=== PATIENT | male | born 1960 | race Caucasian/White ===

== ENCOUNTER 2016-09-25 14:01 | Inpatient (IN) ==
--- NOTE | 2016-09-24 22:28 | Discharge Summary ---
<Ev Jamison - Last Filed: 09/24/16 22:26> Date of Encounter: 09/24/16 - Discharge Diagnosis (1) Arthritis of left hip Priority: Primary Status: Acute (2) HTN (hypertension) Priority: Secondary Status: Chronic Qualifiers: Hypertension type: essential hypertension Qualified Code(s): I10 - Essential (primary) hypertension (3) Tobacco use Priority: Secondary Status: Chronic (4) ESRD (end stage renal disease) on dialysis Priority: Secondary Status: Chronic (5) History of kidney transplant Priority: Secondary Status: Chronic (6) COPD (chronic obstructive pulmonary disease) Priority: Secondary Status: Chronic Qualifiers: COPD type: unspecified COPD Qualified Code(s): J44.9 - Chronic obstructive pulmonary disease, unspecified - Discharge Medications Home Medications: Aclidinium [place] [Tudorza Pressair] 400 mcg IH BID 06/15/15 [History] Alprazolam [Xanax 0.5 MG Tablet] 0.5 mg PO TID 06/15/15 [History] Carvedilol [Coreg] 25 mg PO BID 06/15/15 [History] Aspirin Enteric Coated [Aspirin EC] 325 mg PO DAILY #21 tablet. 09/24/16 [Rx] OxyCODONE/APAP 5/325 [Percocet 5/325 MG] 1 - 2 each PO Q6HR PRN #40 tab [Rx] Albuterol Sulfate [Ventolin Hfa] 2 puff IH Q4H PRN 09/25/16 [History] Aspirin [Lo-Dose Aspirin EC] 81 mg PO DAILY 09/25/16 [History] Dicyclomine [Bentyl] 10 mg PO QID PRN 09/25/16 [History] Furosemide [Lasix] 40 mg PO BID 09/25/16 [History] Gabapentin [Neurontin] 300 mg PO HS 09/25/16 [History] NIFEdipine [Nifedipine ER] 30 mg PO DAILY 09/25/16 [History] OxyCODONE/APAP 5/325 [Percocet 5/325 MG] 1 each PO Q8HR PRN 09/25/16 [History] Pantoprazole Sodium [Protonix] 40 mg PO DAILY 09/25/16 [History] PredniSONE 10 mg PO DAILY 09/25/16 [History] Allergies/Adverse Reactions: Allergies No Known Allergies Allergy (Verified 09/25/16 14:29) Primary care physician: Kingsley Colbert MD - Patient Status Disposition: Home, Self-Care Condition: Good - Discharge Instructions Follow Up With: Kingsley Colbert MD [Primary Care Provider] - - Hospital Course Hospital course: Mr. Sherwood is a 56 year old male - Time Spent with Patient Total time spent providing and/or coordinating discharge services: <[email or web address] - Last Filed: 09/26/16 06:31> Date of Encounter: 09/26/16 Time of Encounter: 06:31 - Discharge Diagnosis (1) Arthritis of left hip Priority: Primary Status: Acute (2) HTN (hypertension) Priority: Secondary Status: Chronic Qualifiers: Hypertension type: essential hypertension Qualified Code(s): I10 - Essential (primary) hypertension (3) Tobacco use Priority: Secondary Status: Chronic (4) ESRD (end stage renal disease) on dialysis Priority: Secondary Status: Chronic (5) History of kidney transplant Priority: Secondary Status: Chronic (6) COPD (chronic obstructive pulmonary disease) Priority: Secondary Status: Chronic Qualifiers: COPD type: unspecified COPD Qualified Code(s): J44.9 - Chronic obstructive pulmonary disease, unspecified Primary care physician: Kingsley Colbert MD - Patient Status Functional capacity at discharge: uses cane/walker Overall status at discharge: patient is progressing back to baseline - Hospital Course Hospital course: Mr. Sherwood is a 56 year old male The patient had an uneventful postoperative course. They received antibiotics and physical therapy and were discharged in stable condition. There will follow -up in the office in 2 weeks. Aspirin DVT prophylaxis will get dialysis tomorrow - Time Spent with Patient Total time spent providing and/or coordinating discharge services:
[2016-09-25] MEDS ORDERED: Albuterol 2.5 MG/3 ML NEBULIZER IH ONE (14:26)
[2016-09-25] MEDS ORDERED: Vancomycin 1,000 MG in D5% in Water 250 ML IVPB ONE (14:26)
[2016-09-25] MEDS ORDERED: Lidocaine -MPF 1% 2 ML VIAL ID ONE (14:26)
[2016-09-25] MEDS ORDERED: 0.9 % Sodium Chloride 500 ML IVC SCH (14:30)
[2016-09-25] MEDS ORDERED: Acetaminophen IV 1,000 MG/100 ML INFUS..BTL IVPB ONE (15:26)
[2016-09-25] MEDS ORDERED: Famotidine 20 MG/2 ML VIAL IVP ONE (15:26)
--- NOTE | 2016-09-25 15:37 | Anesthesia Evaluation PreOp ---
Date of Encounter: 09/25/16 Time of Encounter: 15:30 - Past History Planned Operation: L-total HIP Cardiac History: HTN (maintained on Lasix, Coreg, NOrvasc), Other (Nuclear Stress 02/2016 - LVEF 55%. NO evidence of ischemia or prior myocardial injury) Pulmonary History: Smoker (<1ppd x 35yrs), COPD (maintained on Aclidinium [place], Ventolin), Other (Lung Ca denies) DEFENSE ATTORNEY History: CVA (2012 - Minimal Weakness on L-body (arm, leg, face)), Other ( Chronic Pain/Neuropathy maintained on GAbapentin) Other Medical History: Renal (ESRD S/P R-kidney transplant 06/2014, subsequent failed R&L kidney failures and return to [facility]. Currently wait listed for REPEAT KIDNEY TRANSPLANT. [According to Dr. Hebert, Pts Tx surgeons "OK'd" pt for this Orthopedic surgery), Diabetes Type II (Borderline Diabetic), GERD ( maintained on Protonixs), Other (Multiple hospitalizations 2014-present re: COPD exacerbations, C.Diff, Colitis and Hypertensive urgency) Anesthesia History: No Prior Anesthetic Complications, Past Anesthesia ( Hemorrhoidectomy, Kidney Bx, Dialysis ports, Appy, L-AV Fistula, Blood clot evacuatkon L-forearm, R-Kidney Tx 06/16/2014, Kidney Bx04/2016, Colonoscopy 2015) Alcohol Use: none Drug use: none Medications and Allergies Aclidinium [place] [Tudorza Pressair] 400 mcg IH BID 06/15/15 [History] Alprazolam [Xanax 0.5 MG Tablet] 0.5 mg PO TID 06/15/15 [History] Carvedilol [Coreg] 25 mg PO BID 06/15/15 [History] Aspirin Enteric Coated [Aspirin EC] 325 mg PO DAILY #21 tablet. 09/24/16 [Rx] OxyCODONE/APAP 5/325 [Percocet 5/325 MG] 1 - 2 each PO Q6HR PRN #40 tab [Rx] Albuterol Sulfate [Ventolin Hfa] 2 puff IH Q4H PRN 09/25/16 [History] Aspirin [Lo-Dose Aspirin EC] 81 mg PO DAILY 09/25/16 [History] Dicyclomine [Bentyl] 10 mg PO QID PRN 09/25/16 [History] Furosemide [Lasix] 40 mg PO BID 09/25/16 [History] Gabapentin [Neurontin] 300 mg PO HS 09/25/16 [History] NIFEdipine [Nifedipine ER] 30 mg PO DAILY 09/25/16 [History] OxyCODONE/APAP 5/325 [Percocet 5/325 MG] 1 each PO Q8HR PRN 09/25/16 [History] Pantoprazole Sodium [Protonix] 40 mg PO DAILY 09/25/16 [History] PredniSONE 10 mg PO DAILY 09/25/16 [History] Allergies No Known Allergies Allergy (Verified 09/25/16 14:29) - Meds/Allergy Pre-op Review Medications Reviewed: Yes Allergies Reviewed: Yes Beta Blockers on Current Med List: Yes (Carvedilol) If Beta Blockers taken, Date/Time (Last Dose taken): 09/24/16 @ 2100 Anesthesia Results - Labs Laboratory Tests 12/05/15 09/12/16 09/12/16 14:21 14:22 14:22 WBC 7.6 Hgb 14.8 Hct 45.9 Plt Count 201 PT 11.7 INR 1.1 APTT 33.4 Sodium Potassium Chloride Carbon Dioxide BUN Creatinine Est GFR (Non-Af Amer) Glucose 116 H 09/12/16 14:22 WBC Hgb Hct Plt Count PT INR APTT Sodium 137 Potassium 4.9 H Chloride 102 Carbon Dioxide 20 BUN 24 Creatinine 3.90 H Est GFR (Non-Af Amer) 16 L Glucose (Last Dialysis 09/24/16 - current labs from today not available) - Imaging EKG: image reviewed (11/14/2015 - Sinus Tach, Non-specific T-wave abnormality,) Anesthesia Exam O2 Sat Height 1.7 m Height 1.7 m Weight 66.678 kg Weight 66.678 kg O2 Sat by Pulse Oximetry 94 O2 Sat by Pulse Oximetry 94 Vital Signs Temp Pulse Resp BP Pulse Ox 99.6 F 90 18 101/69 94 09/25/16 14:53 09/25/16 14:53 09/25/16 14:53 09/25/16 14:53 09/25/16 14:53 Height: 5'7" Weight: 147# BMI = 23 NPO (# of Hours): MNOC - HEENT Pupil (Motor): Pupils equal, EOMI Mallampati: II Teeth: Edentulous Oral Opening: Greater than 3 - DEFENSE ATTORNEY LOC: Oriented DEFENSE ATTORNEY Motor: Normal RUE, Normal LUE (LIMB PRECAUTION), Normal RLE, Normal LLE , Normal Face DEFENSE ATTORNEY Sensory: Normal: RUE, LUE (LIMB PRECAUTION), RLE, LLE, Face - Cardiac Rhythm: Regular Murmur: None - Pulmonary Breath Sounds: bilateral Clear Respiratory Effort: Symmetrical Anesthesia Assess/Plan ASA Score: 4 (ESRD, COPD, Smoker,) Modified Kerry Scale for Level of Consciousness: Cooperative, oriented, and tranquil Anesthetic Plan: General Monitoring Plan: Standard Monitors Recovery Plan: PACU Anes Supervising Prov Stmt: Pt seen/evaluated, R&B Discussed, questions answered and consent obtained. Miki Escalante MD
--- NOTE | 2016-09-25 15:44 | History & Physical Report ---
Date of Encounter: 09/25/16 Time of Encounter: 15:43 24 Hour HP Update - Instructions Instructions: If the History and Physical is less than 30 days old and was completed prior to A.M. admission and or procedure and has NOT been updated on calendar day of procedure please complete this update prior to performing procedure. - Update Patient reports changes in Medical Condition: No Changes in examination, assessment, or condition: No Changes in Medication: No Preop tests/diagnostics Reviewed: Yes Surgery Remains Indicated: Yes Consent for Planned Operative Procedure(s) Verified: Yes - Pre-Operative Checklist Preoperative Checklist Indicated: No Prophylactic Antibiotic Ordered: Yes Is VTE Prophylaxis Indicated?: Yes
[2016-09-25] MEDS ORDERED: Ondansetron 4 MG/2 ML VIAL ONE (17:12)
[2016-09-25] MEDS ORDERED: *HR* FentaNYL (PF) 100 MCG/2 ML VIAL ONE (17:12)
[2016-09-25] MEDS ORDERED: *HR* Propofol 200 MG/20 ML VIAL IVP ONE (17:12)
[2016-09-25] MEDS ORDERED: *HR* Rocuronium Bromide 50 MG/5 ML VIAL ONE (17:12)
[2016-09-25] MEDS ORDERED: Lidocaine -MPF 2% 2 ML VIAL ONE (17:12)
[2016-09-25] MEDS ORDERED: Vancomycin 1,000 MG VIAL ONE (17:27)
[2016-09-25] MEDS ORDERED: *HR* Enoxaparin 30 MG/0.3 ML SYRINGE SQ SCH (18:00)
[2016-09-25] MEDS ORDERED: *HR* HYDROmorphone 2 MG/ML SYRINGE ONE (18:11)
[2016-09-25] MEDS ORDERED: Neostigmine Methylsulfate 3 MG/3 ML SYRINGE ONE (18:11)
--- NOTE | 2016-09-25 18:15 | Orthopedic Operative Note ---
Date of procedure: 09/25/16 Pre-op diagnosis: Left hip arthritis Post-op diagnosis: same Procedure: Procedure: Total Hip Replacment Estimated blood loss: 200 cc Hardware: Biomet DM Cup: 54 G7 fin cup Femoral size 16 echo full profile lateralized stem Head: +9 head with Tamera Procedural Notes: Grade 4 arthritic changes femoral head acetabular socket. Operative procedure: The patient was brought to the operating room and placed on the operating room table. After general anesthesia was administered the patient was placed in the lateral decubitus position with the operative leg up. All pressure points were padded appropriately and the head was stabilized in the neutral position. The operative extremity was prepped and draped in the sterile surgical fashion patient received IV antibiotic prior to skin incision. A standard posterior approach is made to the operative hip, the incision was made through the skin and subcutaneous tissue hemostasis was obtained with Bovie cautery. Using careful sharp dissection the fascia was identified and incised exposing the external rotators. The external rotators were released off the greater trochanter and tagged with #2 FiberWire suture. The capsule was T'd open and the hip was brought into internal rotation. Patient noted to have grade 4 arthritic changes femoral head. The femoral neck cut was made at the appropriate level. An anterior capsulotomy was performed for the anterior retractor. Soft tissues removed from the acetabulum. Patient noted to have grade 4 arthritic changes acetabulum. Acetabulum was first reamed medially, and then reamed in 15 degrees of anteversion and 45 degrees off the horizontal. It was reamed up to the appropriate size 54 The appropriate-sized 54 acetabular cup was impacted in place in 15 degrees of anteversion and 45 degrees off the horizontal. This had good fit and fixation. The hip was brought back in to internal rotation and prepared with the box spring maker followed by the canal finder followed by broaching process in 20 degrees anteversion. It was broached up to the appropriate size 16. The femoral implant was impacted in place in 20 degrees of anteversion. Trial reduction found the hip to be stable with +9 head and Tamera. The trials were removed and the real implants were impacted in place. The hip was reduced, patient had apparent equal leg lengths. The hip had excellent stability with forward flexion to 90 degrees adduction of 30 degrees and internal rotation of 60 degrees. The hip had no shuck. The hips after 2 minutes with a Betadine saline solution. It was irrigated out with 2 L of pulse irrigation. The external rotators were reattached to drill holes in the greater trochanter. Fascia was closed with a running #2 PDS suture. The deep tissue was irrigated and closed deep with #1 PDS suture superficially with 0 PDS suture and skin was closed with Dermabond and skin lane. The patient was placed in a sterile dressing and abduction pillow. The patient was extubated and transferred to the recovery room in stable condition. Anesthesia: MERISSA Surgeon: [employer] Computer Consultant: Ev Jamison Condition: stable Disposition: PACU
[2016-09-25] MEDS ORDERED: *HR* Phenylephrine 10 MG/ML VIAL ONE (18:25)
[2016-09-25] MEDS ORDERED: *HR* HYDROmorphone (PF) 1 MG/ML SYRINGE IVP PRN ×2 (18:34→20:09)
[2016-09-25 19:47] LABS: Hematocrit 33.7 % (37.5-50.1); Hemoglobin 10.8 g/dL (12.9-16.9)
--- NOTE | 2016-09-25 19:49 | Anesthesia Evaluation Post Op ---
Date of Encounter: 09/25/16 Time of Encounter: 19:48 - Vital Signs Vital Signs: Last Vital Signs Temp 98.9 F 09/25/16 19:42 Pulse 67 09/25/16 19:42 Resp 16 09/25/16 19:42 BP 104/69 09/25/16 19:42 Pulse Ox 97 09/25/16 19:42 - Lungs Lungs: Clear Ascult./Percussion - Airway Airway: Non-obstructed - Cardiovascular Regular Rate - Mental Status Mental Status: Alert & Oriented, Answers Appropriately - Pain Pain Scale: 2 - Nausea Vomiting Nausea Vomiting: Not Present - Hydration Hydration: Ice chips - Discharge PostOp Status: Transfer Patient to floor
[2016-09-25] MEDS ORDERED: Naloxone 0.4 MG/ML INJ IVP PRN (20:09)
[2016-09-25] MEDS ORDERED: *HR* OxyCODONE Immed Rel 5 MG TABLET PO PRN (20:09)
[2016-09-25] MEDS ORDERED: MOM Conc 10 ML UD.LIQ PO PRN (20:09)
[2016-09-25] MEDS ORDERED: Sennosides 8.6 MG TABLET PO PRN (20:09)
[2016-09-25] MEDS ORDERED: ceFAZolin 2,000 MG in D5% in Water 100 ML IVPB SCH (20:09)
[2016-09-25] MEDS ORDERED: Temazepam 15 MG CAPSULE PO PRN (20:09)
[2016-09-25] MEDS ORDERED: Ondansetron 4 MG/2 ML VIAL IVP PRN (20:09)
[2016-09-25] MEDS: Furosemide 40 MG TABLET PO SCH (21:01)
[2016-09-25] MEDS: Gabapentin 300 MG CAPSULE PO SCH (21:01)
[2016-09-25] MEDS: *HR* OxyCODONE Immed Rel 5 MG TABLET PO PRN (21:02)
[2016-09-25] MEDS: ceFAZolin 2,000 MG in D5% in Water 100 ML IVPB SCH (21:02)
[2016-09-25] MEDS: (Aclidinium Bromide [Tudorza Pressair] 400 MCG) IH SCH (21:03)
[2016-09-25] MEDS: ALPRAZolam 0.5 MG TABLET PO SCH (21:03)
[2016-09-26] MEDS: *HR* OxyCODONE Immed Rel 5 MG TABLET PO PRN ×4 (01:10→17:36)
[2016-09-26] MEDS: ceFAZolin 2,000 MG in D5% in Water 100 ML IVPB SCH (05:01)
[2016-09-26 05:33] LABS: Hematocrit 31.8 % (37.5-50.1); Hemoglobin 10.2 g/dL (12.9-16.9)
[2016-09-26 05:54] LABS: Potassium 3.2 mEq/L (3.5-4.5)
[2016-09-26] MEDS ORDERED: *HR* Enoxaparin 30 MG/0.3 ML SYRINGE SQ SCH (06:00)
--- NOTE | 2016-09-26 06:32 | Orthopedics Progress Note ---
Date of Encounter: 09/26/16 Time of Encounter: 06:31 - Assessment and Plan (1) Arthritis of left hip Current Visit: Yes Status: Acute (2) HTN (hypertension) Current Visit: Yes Status: Chronic Qualifiers: Hypertension type: essential hypertension Qualified Code(s): I10 - Essential (primary) hypertension (3) Tobacco use Current Visit: Yes Status: Chronic (4) ESRD (end stage renal disease) on dialysis Current Visit: Yes Status: Chronic (5) History of kidney transplant Current Visit: Yes Status: Chronic (6) COPD (chronic obstructive pulmonary disease) Current Visit: Yes Status: Chronic Qualifiers: COPD type: unspecified COPD Qualified Code(s): J44.9 - Chronic obstructive pulmonary disease, unspecified Subjective Interval history: Patient was seen this morning doing well without complaints. Afebrile vital signs stable. Operative extremity: Neurovascularly intact Dressing clean dry and intact Calves nontender Assessment and plan: Continue with postoperative care Hematocrit 31 discharged today Objective Vital signs: Vital Signs Temp Pulse Resp BP Pulse Ox 09/26/16 04:36 98.1 F 88 18 105/65 97 09/25/16 23:59 98.0 F 55 15 101/75 100 09/25/16 23:57 98.7 F 82 18 99/69 99 09/25/16 22:14 97.9 F 52 14 92/69 99 09/25/16 21:05 97.8 F 78 18 104/70 98 09/25/16 20:35 98.2 F 68 16 102/69 96 09/25/16 20:00 98.2 F 69 17 109/74 100 09/25/16 19:42 98.9 F 67 16 104/69 97 09/25/16 19:32 65 16 107/70 95 09/25/16 19:22 66 16 106/72 96 09/25/16 19:12 99.0 F 78 16 97/69 96 09/25/16 19:02 66 16 105/72 95 09/25/16 18:52 74 16 96/73 97 09/25/16 18:42 98.6 F 86 16 98/71 94 09/25/16 14:53 99.6 F 90 18 101/69 94 Intake and Output 09/25/16 09/25/16 09/26/16 15:59 23:59 07:59 Intake Total 100 / 100 1200 / 1200 Output Total 200 / 200 Balance -100 / -100 1200 / 1200 Intake: IV Fluids 100 / 100 100 / 100 Ancef 2,000 MG In 100 / 100 100 / 100 Dextrose 5% 100 ML @ 200 mls/hr IVPB Q8H CARLOS Rx#: [id number] Oral 1100 / 1100 Output: Estimated Blood Loss 200 / 200 Other: # Voids 1 Weight 66.678 kg - Labs CBC & BMP: 09/26/16 04:58 09/26/16 04:58 Labs: Abnormal lab results Hgb 10.2 g/dL (12.9-16.9) L 09/26/16 04:58 Hct 31.8 % (37.5-50.1) L 09/26/16 04:58 Sodium 134 mEq/L (136-145) L 09/26/16 04:58 Potassium 3.2 mEq/L (3.5-4.5) L 09/26/16 04:58 Chloride 97 mEq/L (98-109) L 09/26/16 04:58 Creatinine 3.44 mg/dL (0.72-1.25) H 09/26/16 04:58 Est GFR ( Amer) 23 (> 60) L 09/26/16 04:58 Est GFR (Non-Af Amer) 19 (> 60) L 09/26/16 04:58 BUN/Creatinine Ratio 4 (6-26) L 09/26/16 04:58 Calculated Osmolality 278 (280-300) L 09/26/16 04:58 Calcium 8.0 mg/dL (8.6-10.8) L 09/26/16 04:58 - VTE Documentation of Mechanical Device: Venous foot pump, device Consult Discharge Plan - Plan Referrals: Kingsley Colbert MD [Primary Care Provider] -
[2016-09-26] MEDS: ALPRAZolam 0.5 MG TABLET PO SCH ×3 (08:43→20:51)
[2016-09-26] MEDS: NIFEdipine XL (24 HR) 30 MG TAB.ER.24 PO SCH (08:43)
[2016-09-26] MEDS: Aspirin Enteric Coated 81 MG Tablet PO SCH (08:43)
[2016-09-26] MEDS: Furosemide 40 MG TABLET PO SCH ×2 (08:43→20:52)
[2016-09-26] MEDS: predniSONE 10 MG TABLET PO SCH (08:44)
[2016-09-26] MEDS: (Aclidinium Bromide [Tudorza Pressair] 400 MCG) IH SCH ×2 (08:44→20:51)
--- NOTE | 2016-09-26 13:02 | Nephrology Consult Note ---
Date of Encounter: 09/27/16 Time of Encounter: 12:59 Assessment and Plan (1) ESRD (end stage renal disease) on dialysis Current Visit: Yes Status: Chronic Completed HD yesterday. The recorded hypokalemia and mild hyponatremia likely resulted from the dialysis session that he completed yesterday prior to admission. Will continue maintenance HD every M/W/F while here inpatient, so his next HD is scheduled for tomorrow (Sunday). Thank you for consulting the [facility]. History of Present Illness - Reason for Consult Consult date: 09/26/16 end stage renal disease Requesting physician: Ev Jamison - Chief Complaint Hx of ESRD - History of Present Illness Gianluca Sherwood is a very pleasant 56 y/o WM gentleman with a pmh of ESRD on HD s/p prior failed renal transplant in the [facility] who presented for orthopedic surgery. He last dialyzed on Sunday for a full treatment. His primary income tax expert is Dr. Kilgore; and he dialyzes at the [facility] dialysis unit in [place], [place]. He typically dialyzes for 210 minutes via the left forearm AV graft. He denied any recent issues with his outpatient dialysis regimen. He says that he has had long-standing hip and knee pains. Hx of hypertension. He did not affirm chest pain, shortness of breath, nausea, vomiting, or diarrhea. He does have some mild hip pain, and reported feeling very fatigued. Past Med Surg Social Fam HX - Past Medical History Medical history: COPD, CVA, dialysis, hypertension, renal disease, other Psychiatric history: no psych history - Past Surgical History Surgical History: appendectomy, transplant - Social History Smoking Status: Current every day smoker Packs per day: 0.25 Smokeless Tobacco Status: No Alcohol use: none Drug use: none - Family History Mother Living Status: Age at : 64 Cause of : DM Hx Family Cardiac Disorders: Yes Hx Family Respiratory Disorders: Yes Hx Family Cancer: No Hx Family GI Disorders: No Hx Family Genitourinary Disorders: No Hx Family Endocrine Disorder: Yes Hx Family Musculoskeletal Disorders: No Hx Family Neuromuscular Disorders: No Hx Family Neurologic Disorders: No Hx Family HEENT Disorders: No Hx Family Autoimmune Disorders: No Hx Family Reproductive Disorders: No Hx Family Psychosocial Disorders: No Hx Family Medical Disorders: No Medications and Allergies Aclidinium [place] [Tudorza Pressair] 400 mcg IH BID 06/15/15 [History] Alprazolam [Xanax 0.5 MG Tablet] 0.5 mg PO TID 06/15/15 [History] Carvedilol [Coreg] 25 mg PO BID 06/15/15 [History] Aspirin Enteric Coated [Aspirin EC] 325 mg PO DAILY #21 tablet. 09/24/16 [Rx] OxyCODONE/APAP 5/325 [Percocet 5/325 MG] 1 - 2 each PO Q6HR PRN #40 tab [Rx] Albuterol Sulfate [Ventolin Hfa] 2 puff IH Q4H PRN 09/25/16 [History] Aspirin [Lo-Dose Aspirin EC] 81 mg PO DAILY 09/25/16 [History] Dicyclomine [Bentyl] 10 mg PO QID PRN 09/25/16 [History] Furosemide [Lasix] 40 mg PO BID 09/25/16 [History] Gabapentin [Neurontin] 300 mg PO HS 09/25/16 [History] NIFEdipine [Nifedipine ER] 30 mg PO DAILY 09/25/16 [History] OxyCODONE/APAP 5/325 [Percocet 5/325 MG] 1 each PO Q8HR PRN 09/25/16 [History] Pantoprazole Sodium [Protonix] 40 mg PO DAILY 09/25/16 [History] PredniSONE 10 mg PO DAILY 09/25/16 [History] Allergies No Known Allergies Allergy (Verified 09/25/16 14:29) Review of Systems All Systems: reviewed and no additional remarkable complaints except as stated Exam - Vital Signs Vital signs: Initial Vital Signs Temp Pulse Resp BP Pulse Ox 99.6 F 90 18 101/69 94 09/25/16 14:53 09/25/16 14:53 09/25/16 14:53 09/25/16 14:53 09/25/16 14:53 Vital Signs - Last 8 Hours Temp Pulse Resp BP Pulse Ox 09/26/16 11:17 102/60 09/26/16 10:39 97.9 F 101 18 95/70 93 09/26/16 10:21 89 18 109/74 95 09/26/16 08:32 95 09/26/16 06:37 99.8 F H 89 18 109/74 95 Intake and Output 09/25/16 09/26/16 09/26/16 23:59 07:59 15:59 Intake Total 100 / 100 1200 / 1200 0 / 0 Output Total 200 / 200 0 / 0 Balance -100 / -100 1200 / 1200 0 / 0 Intake: IV Fluids 100 / 100 100 / 100 Ancef 2,000 MG In 100 / 100 100 / 100 Dextrose 5% 100 ML @ 200 mls/hr IVPB Q8H CARLOS Rx#: [id number] Oral 1100 / 1100 0 / 0 Output: Urine 0 / 0 Estimated Blood Loss 200 / 200 Other: # Voids 1 - General Appearance General appearance: well-developed, chronically ill, fatigue, frail EENT: ATNC, PERRL, mucous membranes moist Neck: supple Respiratory: clear Cardiology: edema, regular rate, regular rhythm, normal S1, normal S2 - Dialysis Access Dialysis Vascular Access: Arteriovenous Graft (Left) thrill: Yes bruit: Yes Gastrointestinal: normoactive bowel sounds, no tenderness, no guarding Integumentary: no rash, warm and dry Neurologic: no focal deficit, no asterixis, alert and oriented x3 Musculoskeletal: no deformities, no erythema Psychiatric: depressed, cooperative Results - Lab Results 09/27/16 05:45 09/27/16 05:45 Most recent lab results Calcium 8.0 mg/dL (8.6-10.8) L 09/26/16 04:58 I reviewed the above auto generated data miller and reviewed the labs, meds, vitals, imaging, progress notes, and outside medical records via the [facility] EMR system. Consult Discharge Plan - Plan Instructions: Chronic Obstructive Pulmonary Disease (DC), Chronic Hypertension (DC) Referrals: Frank Coy MD [Partnered Physician] - 10/25/16 4:40 pm Ev Jamison PAC [Physician Band Leader] - 10/05/16 9:00 am Kingsley Colbert MD [Primary Care Provider] - 10/05/16 2:15 pm
--- NOTE | 2016-09-26 13:43 | Anesthesia Evaluation PreOp ---
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 09/24/16 [Rx] OxyCODONE/APAP 5/325 [Percocet 5/325 MG] 1 - 2 each PO Q6HR PRN #40 tab [Rx] Albuterol Sulfate [Ventolin Hfa] 2 puff IH Q4H PRN 09/25/16 [History] Aspirin [Lo-Dose Aspirin EC] 81 mg PO DAILY 09/25/16 [History] Dicyclomine [Bentyl] 10 mg PO QID PRN 09/25/16 [History] Furosemide [Lasix] 40 mg PO BID 09/25/16 [History] Gabapentin [Neurontin] 300 mg PO HS 09/25/16 [History] NIFEdipine [Nifedipine ER] 30 mg PO DAILY 09/25/16 [History] OxyCODONE/APAP 5/325 [Percocet 5/325 MG] 1 each PO Q8HR PRN 09/25/16 [History] Pantoprazole Sodium [Protonix] 40 mg PO DAILY 09/25/16 [History] PredniSONE 10 mg PO DAILY 09/25/16 [History] Allergies No Known Allergies Allergy (Verified 09/25/16 14:29) - Meds/Allergy Pre-op Review Medications Reviewed: Yes Allergies Reviewed: Yes Beta Blockers on Current Med List: Yes If Beta Blockers taken, Date/Time (Last Dose taken): 09/27/2015 08:43 Anesthesia Results - Labs 09/26/16 04:58 09/26/16 04:58 Stress 02/17 EF-55%, No ischemia - Imaging EKG: image reviewed (ST, Non-specifi T-wave abnormality) Anesthesia Exam O2 Sat Height 1.7 m Height 1.7 m Weight 66.678 kg Weight 66.678 kg O2 Sat by Pulse Oximetry 93 O2 Sat by Pulse Oximetry 95 O2 Sat by Pulse Oximetry 95 O2 Sat by Pulse Oximetry 95 O2 Sat by Pulse Oximetry 97 O2 Sat by Pulse Oximetry 100 O2 Sat by Pulse Oximetry 99 O2 Sat by Pulse Oximetry 99 O2 Sat by Pulse Oximetry 98 O2 Sat by Pulse Oximetry 96 O2 Sat by Pulse Oximetry 100 O2 Sat by Pulse Oximetry 97 O2 Sat by Pulse Oximetry 95 O2 Sat by Pulse Oximetry 96 O2 Sat by Pulse Oximetry 96 O2 Sat by Pulse Oximetry 95 O2 Sat by Pulse Oximetry 97 O2 Sat by Pulse Oximetry 94 O2 Sat by Pulse Oximetry 94 O2 Sat by Pulse Oximetry 94 Vital Signs Temp Pulse Resp BP Pulse Ox 99.6 F 90 18 101/69 94 09/25/16 14:53 09/25/16 14:53 09/25/16 14:53 09/25/16 14:53 09/25/16 14:53 Vital Signs/O2 Sat, Most Current Temp Pulse Resp BP Pulse Ox 97.9 F 101 18 102/60 93 09/26/16 10:39 09/26/16 10:39 09/26/16 10:39 09/26/16 11:17 09/26/16 10:39 Height: 5'7'' Weight: 147# NPO (# of Hours): > 8 hrs Pain Scale: 0 Pain Scale Used: Numeric (1 - 10) - HEENT Pupil (Motor): Pupils equal, EOMI Mallampati: II Teeth: Edentulous Oral Opening: Greater than 3 - NATIONAL DEDICATED TRUCK DRIVER LOC: Oriented NATIONAL DEDICATED TRUCK DRIVER Motor: Normal RUE, Normal LUE, Normal RLE, Normal LLE, Normal Face NATIONAL DEDICATED TRUCK DRIVER Sensory: Normal: RUE, LUE, RLE, LLE, Face - Cardiac Rhythm: Regular Murmur: None JVD: No Carotid Bruit: No - Pulmonary Breath Sounds: bilateral Clear Respiratory Effort: Symmetrical Anesthesia Assess/Plan ASA Score: 4 Modified [place] Scale for Level of Consciousness: Cooperative, oriented, and tranquil Anesthetic Plan: MAC Autologous Blood: Yes Monitoring Plan: Standard Monitors Recovery Plan: Other
[2016-09-26] MEDS: Gabapentin 300 MG CAPSULE PO SCH (20:50)
[2016-09-27] MEDS: *HR* OxyCODONE Immed Rel 5 MG TABLET PO PRN ×2 (05:38→14:58)
[2016-09-27] MEDS: *HR* Heparin 5,000 UNIT/ML VIAL SQ SCH ×2 (05:38→17:04)
[2016-09-27 06:07] LABS: Hematocrit 27.5 % (37.5-50.1); Hemoglobin 8.9 g/dL (12.9-16.9)
--- NOTE | 2016-09-27 06:50 | Orthopedics Progress Note ---
Date of Encounter: 09/27/16 Time of Encounter: 06:50 - Assessment and Plan (1) Arthritis of left hip Current Visit: Yes Status: Acute (2) HTN (hypertension) Current Visit: Yes Status: Chronic Qualifiers: Hypertension type: essential hypertension Qualified Code(s): I10 - Essential (primary) hypertension (3) Tobacco use Current Visit: Yes Status: Chronic (4) ESRD (end stage renal disease) on dialysis Current Visit: Yes Status: Chronic (5) History of kidney transplant Current Visit: Yes Status: Chronic (6) COPD (chronic obstructive pulmonary disease) Current Visit: Yes Status: Chronic Qualifiers: COPD type: unspecified COPD Qualified Code(s): J44.9 - Chronic obstructive pulmonary disease, unspecified Subjective Interval history: Patient was seen this morning doing well without complaints. Afebrile vital signs stable. Operative extremity: Neurovascularly intact Dressing clean dry and intact Calves nontender Assessment and plan: Continue with postoperative care Hemoglobin 8.9 discharged today after dialysis Objective Vital signs: Vital Signs Temp Pulse Resp BP Pulse Ox 09/27/16 05:45 104 18 99/62 09/27/16 02:01 99.3 F 102 17 99/69 92 09/26/16 21:11 98.8 F 110 16 111/72 93 09/26/16 17:20 100.8 F H 09/26/16 14:00 99.8 F H 105 20 95/67 93 09/26/16 11:17 102/60 09/26/16 10:39 97.9 F 101 18 95/70 93 09/26/16 10:21 89 18 109/74 95 09/26/16 08:32 95 Intake and Output 09/26/16 09/26/16 09/27/16 15:59 23:59 07:59 Intake Total 0 / 0 240 / 240 Output Total 200 / 200 50 / 50 Balance -200 / -200 240 / 240 -50 / -50 Intake: Oral 0 / 0 240 / 240 Output: Urine 200 / 200 50 / 50 Other: Meal Dinner Percent of Meal Consumed 50% # Voids 1 - Labs CBC & BMP: 09/27/16 05:45 09/26/16 04:58 Labs: Abnormal lab results Hgb 8.9 g/dL (12.9-16.9) L 09/27/16 05:45 Hct 27.5 % (37.5-50.1) L 09/27/16 05:45 Sodium 134 mEq/L (136-145) L 09/26/16 04:58 Potassium 3.2 mEq/L (3.5-4.5) L 09/26/16 04:58 Chloride 97 mEq/L (98-109) L 09/26/16 04:58 Creatinine 3.44 mg/dL (0.72-1.25) H 09/26/16 04:58 Est GFR ( Amer) 23 (> 60) L 09/26/16 04:58 Est GFR (Non-Af Amer) 19 (> 60) L 09/26/16 04:58 BUN/Creatinine Ratio 4 (6-26) L 09/26/16 04:58 Calculated Osmolality 278 (280-300) L 09/26/16 04:58 Calcium 8.0 mg/dL (8.6-10.8) L 09/26/16 04:58 - VTE Documentation of Mechanical Device: Venous foot pump, device Consult Discharge Plan - Plan Instructions: Chronic Obstructive Pulmonary Disease (DC), Chronic Hypertension (DC) Referrals: Frank Coy MD [Partnered Physician] - 10/25/16 4:40 pm Ev Jamison, PAC [Physician Signal Fitter] - 10/05/16 9:00 am Kingsley Colbert MD [Primary Care Provider] - 10/05/16 2:15 pm
[2016-09-27] MEDS ORDERED: 0.9 % Sodium Chloride 250 ML IVC PRN (06:51)
[2016-09-27 06:54] LABS: Calcium 8.5 mg/dL (8.6-10.8); Magnesium 1.2 mg/dL (1.6-2.6); Phosphorous 4.5 mg/dL (2.3-4.7); Potassium 3.6 mEq/L (3.5-4.5)
[2016-09-27] MEDS: ALPRAZolam 0.5 MG TABLET PO SCH ×3 (08:40→21:38)
[2016-09-27] MEDS ORDERED: 0.9 % Sodium Chloride 2,000 ML ONE (12:57)
[2016-09-27] MEDS: NIFEdipine XL (24 HR) 30 MG TAB.ER.24 PO SCH (14:58)
[2016-09-27] MEDS: predniSONE 10 MG TABLET PO SCH (14:58)
[2016-09-27] MEDS: Furosemide 40 MG TABLET PO SCH ×2 (14:59→21:38)
[2016-09-27] MEDS: Aspirin Enteric Coated 81 MG Tablet PO SCH (15:00)
[2016-09-27] MEDS: (Aclidinium Bromide [Tudorza Pressair] 400 MCG) IH SCH ×2 (15:00→21:39)
--- NOTE | 2016-09-27 17:12 | Nephrology Progress Note ---
Date of Encounter: 09/27/16 Time of Encounter: 17:09 - Assessment and Plan (1) ESRD (end stage renal disease) on dialysis Current Visit: Yes Status: Chronic Dialysis note: pt was seen while on HD. Tolerating the procedure well. QB and Qd were adequate and his left forearm AVG was working. Next HD is planned for Sunday. Please feel free to call me or the [facility] with any questions. Thank you. Subjective Principal diagnosis: ESRD Interval history: Pt was s/e while on HD. He did not affirm N/V/D or uremic symptoms and he denied cramping while on HD. Objective - Vital Signs Vital signs: Vital Signs Temp Pulse Resp BP Pulse Ox 09/27/16 14:39 99.5 F 123 18 109/74 94 09/27/16 14:10 98.8 F 16 123/67 09/27/16 14:00 103/62 09/27/16 13:45 101/48 09/27/16 13:30 99/57 09/27/16 13:15 113/68 09/27/16 13:00 126/87 09/27/16 12:45 128/68 09/27/16 12:30 117/70 09/27/16 12:15 102/58 09/27/16 12:00 108/69 09/27/16 11:45 109/68 09/27/16 11:30 108/65 09/27/16 11:15 99/72 09/27/16 11:00 112/66 09/27/16 10:45 99/59 09/27/16 10:30 98.8 F 16 111/72 09/27/16 06:51 98.8 F 86 16 100/64 95 09/27/16 05:45 104 18 99/62 09/27/16 02:01 99.3 F 102 17 99/69 92 09/26/16 21:11 98.8 F 110 16 111/72 93 09/26/16 17:20 100.8 F H Intake and Output 09/27/16 09/27/16 09/27/16 07:59 15:59 23:59 Intake Total 600 / 600 Output Total 50 / 50 2600 / 2600 Balance -50 / -50 -1999 / Intake: Oral 0 / 0 Intake, Rinseback and 600 / 600 Flushes Output: Urine 50 / 50 Total Dialysis Output 2600 / 2600 Other: Meal Breakfast Percent of Meal Consumed 50% # Voids 1 1 Weight 71 kg Hemodialysis Net Fluid 2000 Removed (mL) Patient Weight 09/27/16 23:59 Weight 71 kg - General Appearance General appearance: Present: well-developed, chronically ill, frail EENT: Present: ATNC, PERRL, mucous membranes moist Neck: Present: supple Respiratory: Present: clear Cardiology: Present: edema, regular rate, regular rhythm, normal S1, normal S2 Dialysis Vascular Access: Arteriovenous Graft (left forearm) thrill: Yes bruit: Yes Gastrointestinal: Present: normoactive bowel sounds, no tenderness, no guarding Integumentary: Present: no rash, warm and dry Neurologic: Present: no focal deficit, no asterixis Musculoskeletal: Present: no cyanosis, no clubbing - Lab 09/27/16 05:45 09/27/16 05:45 Most recent lab results Calcium 8.5 mg/dL (8.6-10.8) L 09/27/16 05:45 Phosphorus 4.5 mg/dL (2.3-4.7) 09/27/16 05:45 Magnesium 1.2 mg/dL (1.6-2.6) L 09/27/16 05:45 - VTE Documentation of Mechanical Device: Venous foot pump, device Consult Discharge Plan - Plan Instructions: Chronic Obstructive Pulmonary Disease (DC), Chronic Hypertension (DC) Referrals: Frank Coy MD [Partnered Physician] - 10/25/16 4:40 pm Ev Jamison, PAC [Physician Cable Supervisor] - 10/05/16 9:00 am Kingsley Colbert MD [Primary Care Provider] - 10/05/16 2:15 pm
[2016-09-27] MEDS: Gabapentin 300 MG CAPSULE PO SCH (21:38)
[2016-09-28] MEDS: *HR* OxyCODONE Immed Rel 5 MG TABLET PO PRN (02:19)
[2016-09-28 07:03] LABS: Calcium 8.4 mg/dL (8.6-10.8); Phosphorous 4.4 mg/dL (2.3-4.7); Potassium 3.6 mEq/L (3.5-4.5)
[2016-09-28 07:07] LABS: Basophils % 0.3 %; Eosinophils % 0.4 %; Hematocrit 23.8 % (37.5-50.1); Hemoglobin 7.6 g/dL (12.9-16.9); Immature Granulocytes % 1.7 % (0-4); Lymphocytes # 1.4 K/mcL (0.6-4.6); Lymphocytes % 19.3 %; Mean Corpuscular HGB Conc 31.9 g/dL (31.6-35.5); Mean Corpuscular Hemoglobin 30.9 pg (28.0-33.3); Mean Corpuscular Volume 96.7 fL (83.0-100.0); Mean Platelet Volume 10.9 fL (9.4-12.4); Monocytes # 0.6 K/mcL (0.0-1.3); Monocytes % 8.2 %; Platelet Count 312 K/mcL (140-400); Red Blood Count 2.46 M/mcL (4.19-5.50); Red Cell Distribution Width 13.8 % (11.5-14.5); Segmented Neutrophils % 70.1 %
--- NOTE | 2016-09-28 08:03 | Orthopedics Progress Note ---
Date of Encounter: 09/28/16 Time of Encounter: 08:03 - Assessment and Plan (1) Arthritis of left hip Current Visit: Yes Status: Acute (2) HTN (hypertension) Current Visit: Yes Status: Chronic Qualifiers: Hypertension type: essential hypertension Qualified Code(s): I10 - Essential (primary) hypertension (3) Tobacco use Current Visit: Yes Status: Chronic (4) ESRD (end stage renal disease) on dialysis Current Visit: Yes Status: Chronic (5) History of kidney transplant Current Visit: Yes Status: Chronic (6) COPD (chronic obstructive pulmonary disease) Current Visit: Yes Status: Chronic Qualifiers: COPD type: unspecified COPD Qualified Code(s): J44.9 - Chronic obstructive pulmonary disease, unspecified Subjective Principal diagnosis: ESRD Interval history: Patient was seen this morning doing well without complaints. Afebrile vital signs stable. Operative extremity: Neurovascularly intact Dressing clean dry and intact Calves nontender Assessment and plan: Continue with postoperative care Hemoglobin 7.5 discharged today after transfusion Objective Vital signs: Vital Signs Temp Pulse Resp BP Pulse Ox 09/28/16 07:20 98.6 F 82 16 91/57 93 09/28/16 05:07 97.5 F L 86 16 105/69 92 09/28/16 00:07 98.8 F 88 16 97/58 92 09/27/16 20:01 99.4 F 92 16 91/60 93 09/27/16 14:39 99.5 F 123 18 109/74 94 09/27/16 14:10 98.8 F 16 123/67 09/27/16 14:00 103/62 09/27/16 13:45 101/48 09/27/16 13:30 99/57 09/27/16 13:15 113/68 09/27/16 13:00 126/87 09/27/16 12:45 128/68 09/27/16 12:30 117/70 09/27/16 12:15 102/58 09/27/16 12:00 108/69 09/27/16 11:45 109/68 09/27/16 11:30 108/65 09/27/16 11:15 99/72 09/27/16 11:00 112/66 09/27/16 10:45 99/59 09/27/16 10:30 98.8 F 16 111/72 Intake and Output 09/27/16 09/28/16 09/28/16 23:59 07:59 15:59 Intake Total 250 / 250 Output Total 200 / 200 Balance 50 / 50 Intake: IV Fluids 250 / 250 0.9 % Sodium Chloride 250 250 / 250 ML @ 937.5 mls/hr IVC . Q16M PRN Rx#:[id number] Output: Urine 200 / 200 - Labs CBC & BMP: 09/28/16 05:54 09/28/16 05:54 Labs: Abnormal lab results RBC 2.46 M/mcL (4.19-5.50) L 09/28/16 05:54 Hgb 7.6 g/dL (12.9-16.9) L 09/28/16 05:54 Hct 23.8 % (37.5-50.1) L 09/28/16 05:54 Sodium 134 mEq/L (136-145) L 09/28/16 05:54 Chloride 90 mEq/L (98-109) L 09/28/16 05:54 Creatinine 4.08 mg/dL (0.72-1.25) H 09/28/16 05:54 Est GFR ( Amer) 19 (> 60) L 09/28/16 05:54 Est GFR (Non-Af Amer) 15 (> 60) L 09/28/16 05:54 Glucose 102 mg/dL (70-99) H 09/28/16 05:54 Calcium 8.4 mg/dL (8.6-10.8) L 09/28/16 05:54 Magnesium 1.2 mg/dL (1.6-2.6) L 09/27/16 05:45 - VTE Documentation of Mechanical Device: Venous foot pump, device Consult Discharge Plan - Plan Instructions: Chronic Obstructive Pulmonary Disease (DC), Chronic Hypertension (DC) Referrals: Frank Coy MD [Partnered Physician] - 10/25/16 4:40 pm Ev Jamison PAC [Physician Bioinformatics Associate] - 10/05/16 9:00 am Kingsley Colbert MD [Primary Care Provider] - 10/05/16 2:15 pm
[2016-09-28] MEDS: *HR* Heparin 5,000 UNIT/ML VIAL SQ SCH (08:15)
[2016-09-28] MEDS: Furosemide 40 MG TABLET PO SCH (08:50)
[2016-09-28] MEDS: NIFEdipine XL (24 HR) 30 MG TAB.ER.24 PO SCH (08:50)
[2016-09-28] MEDS: (Aclidinium Bromide [Tudorza Pressair] 400 MCG) IH SCH (08:50)
[2016-09-28] MEDS: ALPRAZolam 0.5 MG TABLET PO SCH ×2 (08:53→15:06)
[2016-09-28] MEDS: predniSONE 10 MG TABLET PO SCH (08:54)
[2016-09-28] MEDS: Aspirin Enteric Coated 81 MG Tablet PO SCH (08:54)
[2016-09-28] MEDS ORDERED: 0.9 % Sodium Chloride 250 ML ONE (10:41)
--- NOTE | 2016-09-28 11:38 | Nephrology Progress Note ---
Date of Encounter: 09/28/16 Time of Encounter: 11:36 - Assessment and Plan (1) ESRD (end stage renal disease) on dialysis Current Visit: Yes Status: Chronic Nurse states patient will be discharged today Plan for HD [facility] at [facility] (2) Arthritis of left hip Current Visit: Yes Status: Acute per orthopedics team Subjective Principal diagnosis: ESRD Interval history: Patient seen and examined. Sleeping but answers questions appropriately. Currently getting a unit of blood Objective - Vital Signs Vital signs: Vital Signs Temp Pulse Resp BP Pulse Ox 09/28/16 11:21 98.2 F 88 10 84/55 93 09/28/16 07:20 98.6 F 82 16 91/57 93 09/28/16 05:07 97.5 F L 86 16 105/69 92 09/28/16 00:07 98.8 F 88 16 97/58 92 09/27/16 20:01 99.4 F 92 16 91/60 93 09/27/16 14:39 99.5 F 123 18 109/74 94 09/27/16 14:10 98.8 F 16 123/67 09/27/16 14:00 103/62 09/27/16 13:45 101/48 09/27/16 13:30 99/57 09/27/16 13:15 113/68 09/27/16 13:00 126/87 09/27/16 12:45 128/68 09/27/16 12:30 117/70 09/27/16 12:15 102/58 09/27/16 12:00 108/69 09/27/16 11:45 109/68 Intake and Output 09/27/16 09/28/16 09/28/16 23:59 07:59 15:59 Intake Total 250 / 250 480 / 480 Output Total 200 / 200 Balance 50 / 50 480 / 480 Intake: IV Fluids 250 / 250 0.9 % Sodium Chloride 250 250 / 250 ML @ 937.5 mls/hr IVC . Q16M PRN Rx#:[id number] Oral 480 / 480 Blood Product 0 / 0 Rbcs Leuko Poor As-1 0 / 0 Unit [id number] Output: Urine 200 / 200 Other: Meal Breakfast Percent of Meal Consumed 100% - General Appearance General appearance: Present: well-developed, well-nourished EENT: Present: ATNC, mucous membranes moist, hearing intact, vision intact Neck: Present: supple Respiratory: Present: clear Cardiology: Present: no edema, normal S1, normal S2 Dialysis Vascular Access: Arteriovenous Fistula Gastrointestinal: Present: no tenderness, no guarding Integumentary: Present: warm and dry Neurologic: Present: alert and oriented x3 Psychiatric: Present: mood/affect appropriate, cooperative - Lab 09/28/16 05:54 09/28/16 05:54 Most recent lab results Calcium 8.4 mg/dL (8.6-10.8) L 09/28/16 05:54 Phosphorus 4.4 mg/dL (2.3-4.7) 09/28/16 05:54 Magnesium 1.2 mg/dL (1.6-2.6) L 09/27/16 05:45 - VTE Documentation of Mechanical Device: Venous foot pump, device Consult Discharge Plan - Plan Instructions: Chronic Obstructive Pulmonary Disease (DC), Chronic Hypertension (DC) Referrals: Frank Coy MD [Partnered Physician] - 10/25/16 4:40 pm Ev Jamison, LEXII [Physician Hand Bindery Assembly Worker] - 10/05/16 9:00 am Kingsley Colbert MD [Primary Care Provider] - 10/05/16 2:15 pm
[2016-09-28 14:21] VITALS: BP 90/59
== END 2016-09-28 15:15 | disposition home or self-care (01) | DRG 301 ==
LOC: SAMDAY 14:01 → 3NENU 20:06
PROVIDERS: ADMIT Orthopaedic Surgery; ATTEND Orthopaedic Surgery

== ENCOUNTER 2017-02-19 12:24 | Inpatient (IN) ==
--- NOTE | 2017-02-18 22:33 | Discharge Summary ---
<LeroyarianaEv L - Last Filed: 02/18/17 22:30> Date of Encounter: 02/18/17 - Discharge Diagnosis (1) Arthritis of right hip Priority: Primary Status: Acute (2) Status post total hip replacement, right Priority: Primary Status: Acute (3) HTN (hypertension) Priority: Secondary Status: Chronic Qualifiers: Hypertension type: essential hypertension (4) Tobacco use Priority: Secondary Status: Chronic (5) ESRD (end stage renal disease) on dialysis Priority: Secondary Status: Chronic (6) History of kidney transplant Priority: Secondary Status: Chronic (7) COPD (chronic obstructive pulmonary disease) Priority: Secondary Status: Chronic Qualifiers: COPD type: chronic bronchitis Chronic bronchitis type: unspecified Qualified Code(s): J42 - Unspecified chronic bronchitis - Discharge Medications Home Medications: ALPRAZolam [Xanax 0.5 MG Tablet] 0.5 mg PO TID 06/15/15 [History] Aclidinium [place] [Tudorza Pressair] 400 mcg IH BID 06/15/15 [History] Carvedilol [Coreg] 25 mg PO BID 06/15/15 [History] Albuterol Sulfate [Ventolin Hfa] 2 puff IH Q4H PRN 09/25/16 [History] Aspirin [Lo-Dose Aspirin EC] 81 mg PO DAILY 09/25/16 [History] Dicyclomine [Bentyl] 10 mg PO QID PRN 09/25/16 [History] Furosemide [Lasix] 40 mg PO BID 09/25/16 [History] Gabapentin [Neurontin] 300 mg PO HS 09/25/16 [History] NIFEdipine [Nifedipine ER] 30 mg PO DAILY 09/25/16 [History] Pantoprazole Sodium [Protonix] 40 mg PO DAILY 09/25/16 [History] predniSONE [PredniSONE] 10 mg PO DAILY 09/25/16 [History] Aspirin Enteric Coated [Aspirin EC] 325 mg PO DAILY #21 tablet. 02/18/17 [Rx] OxyCODONE/APAP 5/325 [Percocet 5/325 MG] 1 - 2 each PO Q6HR PRN #40 tab [Rx] Allergies/Adverse Reactions: 3 Allergy/AdvReac Type Severity Reaction Status Date / Time No Known Allergies Allergy Verified 02/19/17 13:07 Primary care physician: Kingsley Colbert MD - Patient Status Disposition: Home Health Service Condition: Good - Discharge Instructions Follow Up With: Kingsley Colbert MD [Primary Care Provider] - 02/27/17 1:15 pm (Please follow up as schedule) - Hospital Course Hospital course: Mr. Sherwood is a 56 year old male - Time Spent with Patient Total time spent providing and/or coordinating discharge services: <CoyFrank - Last Filed: 02/23/17 06:34> Date of Encounter: 02/23/17 Time of Encounter: 06:33 - Discharge Diagnosis (1) Failed kidney transplant Priority: Secondary Status: Chronic (2) HTN (hypertension) Priority: Secondary Status: Chronic Qualifiers: Hypertension type: unspecified Qualified Code(s): I10 - Essential (primary ) hypertension (3) Tobacco use Priority: Secondary Status: Chronic (4) ESRD (end stage renal disease) on dialysis Priority: Secondary Status: Chronic (5) COPD (chronic obstructive pulmonary disease) Priority: Secondary Status: Chronic Qualifiers: COPD type: chronic bronchitis Chronic bronchitis type: unspecified Qualified Code(s): J42 - Unspecified chronic bronchitis (6) Arthritis of right hip Priority: Primary Status: Chronic (7) Status post total hip replacement, right Priority: Primary Status: Acute (8) Acute blood loss anemia Priority: Primary Status: Acute Labs on day of discharge: Labs from last 24 hours 02/19/17 12:48 POC Glucose 87 Primary care physician: Kingsley Colbert MD - Patient Status Functional capacity at discharge: uses cane/walker Overall status at discharge: patient is progressing back to baseline - Hospital Course Hospital course: Mr. Sherwood is a 56 year old male Status post total hip replacement. Patient received dialysis while in the hospital. Patient received blood for acute blood loss anemia. Otherwise patient had uneventful postoperative course seated and by physical therapy discharge stable condition following week. - Time Spent with Patient Total time spent providing and/or coordinating discharge services:
[2017-02-19] MEDS ORDERED: CeFAZolin Pre 2,000 MG/100 ML 2,000 MG/100 ML BAG IVPB ONE (12:45)
[2017-02-19] MEDS ORDERED: 0.9 % Sodium Chloride 500 ML IVC SCH (12:45)
[2017-02-19] MEDS ORDERED: Albuterol 2.5 MG/3 ML NEBULIZER IH ONE (12:45)
[2017-02-19] MEDS ORDERED: Lidocaine -MPF 1% 2 ML VIAL ID ONE (12:45)
--- NOTE | 2017-02-19 12:48 | Anesthesia Evaluation PreOp ---
Date of Encounter: 02/19/17 Time of Encounter: 12:47 - Past History Planned Operation: Right Total Hip Arthroplasty Cardiac History: IN, HTN, Arrhythmia, Other (CAD) Pulmonary History: Smoker, Pack/yr (1 ppd x 45 years), COPD Other Medical History: Renal (ESRD), Diabetes Type II Alcohol Use: none Drug use: none Medications and Allergies ALPRAZolam [Xanax 0.5 MG Tablet] 0.5 mg PO TID 06/15/15 [History] Aclidinium [place] [Tudorza Pressair] 400 mcg IH BID 06/15/15 [History] Carvedilol [Coreg] 25 mg PO BID 06/15/15 [History] Albuterol Sulfate [Ventolin Hfa] 2 puff IH Q4H PRN 09/25/16 [History] Aspirin [Lo-Dose Aspirin EC] 81 mg PO DAILY 09/25/16 [History] Dicyclomine [Bentyl] 10 mg PO QID PRN 09/25/16 [History] Furosemide [Lasix] 40 mg PO BID 09/25/16 [History] Gabapentin [Neurontin] 300 mg PO HS 09/25/16 [History] NIFEdipine [Nifedipine ER] 30 mg PO DAILY 09/25/16 [History] Pantoprazole Sodium [Protonix] 40 mg PO DAILY 09/25/16 [History] predniSONE [PredniSONE] 10 mg PO DAILY 09/25/16 [History] Aspirin Enteric Coated [Aspirin EC] 325 mg PO DAILY #21 tablet. 02/18/17 [Rx] OxyCODONE/APAP 5/325 [Percocet 5/325 MG] 1 - 2 each PO Q6HR PRN #40 tab [Rx] 3 Allergy/AdvReac Type Severity Reaction Status Date / Time No Known Allergies Allergy Verified 02/19/17 13:07 - Meds/Allergy Pre-op Review Medications Reviewed: Yes Allergies Reviewed: Yes Beta Blockers on Current Med List: Yes If Beta Blockers taken, Date/Time (Last Dose taken): ordered Voreg 12.5 mg po now Anesthesia Results - Labs Laboratory Tests 10/06/16 02/14/17 02/14/17 06:05 10:55 10:55 WBC 6.8 Hgb 15.0 Hct 46.0 Plt Count 161 INR 1.0 Sodium Potassium Chloride Carbon Dioxide BUN/Creatinine Ratio Glucose 89 02/14/17 10:55 WBC Hgb Hct Plt Count INR Sodium 139 Potassium 3.7 Chloride 99 Carbon Dioxide 28 BUN/Creatinine Ratio 6 Glucose - Imaging EKG: image reviewed (SR) Anesthesia Exam O2 Sat Height 1.7 m Height 1.7 m Height 1.7 m Weight 70.307 kg Weight 70.307 kg Weight 70.307 kg O2 Sat by Pulse Oximetry 96 O2 Sat by Pulse Oximetry 96 Vital Signs Temp Pulse Resp BP Pulse Ox 98.4 F 65 18 155/90 96 02/19/17 12:56 02/19/17 12:56 02/19/17 12:56 02/19/17 12:56 02/19/17 12:56 Blood glucose: 87 Height: 5'7'' Weight: 155# - HEENT Pupil (Motor): Pupils equal, EOMI Mallampati: III Teeth: Edentulous Denture Type: Upper: Complete, Lower: Complete - SUSTAINABILITY ENGINEER LOC: Oriented SUSTAINABILITY ENGINEER Motor: Normal RUE, Normal LUE, Normal RLE, Normal LLE, Normal Face SUSTAINABILITY ENGINEER Sensory: Normal: RUE, LUE, RLE, LLE, Face - Cardiac Rhythm: Regular Murmur: None JVD: No Carotid Bruit: No - Pulmonary Breath Sounds: bilateral Clear Respiratory Effort: Symmetrical Anesthesia Assess/Plan ASA Score: 4 Modified [place] Scale for Level of Consciousness: Cooperative, oriented, and tranquil Anesthetic Plan: General, Regional Autologous Blood: Yes Monitoring Plan: Standard Monitors Recovery Plan: PACU
--- NOTE | 2017-02-19 12:48 | History & Physical Report ---
Date of Encounter: 02/19/17 Time of Encounter: 12:47 24 Hour HP Update - Instructions Instructions: If the History and Physical is less than 30 days old and was completed prior to A.M. admission and or procedure and has NOT been updated on calendar day of procedure please complete this update prior to performing procedure. - Update Patient reports changes in Medical Condition: No Changes in examination, assessment, or condition: No Changes in Medication: No Preop tests/diagnostics Reviewed: Yes Surgery Remains Indicated: Yes Consent for Planned Operative Procedure(s) Verified: Yes - Pre-Operative Checklist Preoperative Checklist Indicated: No Prophylactic Antibiotic Ordered: Yes Is VTE Prophylaxis Indicated?: Yes
[2017-02-19] MEDS ORDERED: Ondansetron 4 MG/2 ML VIAL IVP ONE (15:32)
[2017-02-19] MEDS ORDERED: *HR* Labetalol 20 MG/4 ML SYRINGE IVP PRN (15:32)
[2017-02-19] MEDS ORDERED: *HR* FentaNYL (PF) 100 MCG/2 ML VIAL ONE (15:34)
[2017-02-19] MEDS ORDERED: Lidocaine -MPF 2% 2 ML VIAL ONE (15:34)
[2017-02-19] MEDS ORDERED: Ondansetron 4 MG/2 ML VIAL ONE ×2 (15:34→16:41)
[2017-02-19] MEDS ORDERED: *HR* Succinylcholine 200 MG/10 ML VIAL IVP ONE (15:34)
[2017-02-19] MEDS ORDERED: Dexamethasone 4 MG/ML VIAL ONE (15:34)
[2017-02-19] MEDS ORDERED: *HR* Midazolam HCl 2 MG/2 ML VIAL ONE ×2 (15:35→15:52)
[2017-02-19] MEDS ORDERED: *HR* Propofol 200 MG/20 ML VIAL IVP ONE (15:35)
[2017-02-19] MEDS ORDERED: ROPIVACAINE HCL/PF 0.5% 30 ML VIAL ONE (15:45)
--- NOTE | 2017-02-19 16:18 | Anesthesia Procedures ---
Date of Encounter: 02/19/17 Time of Encounter: 15:56 Procedures: Anesthesia - Nerve Block Procedure Date: 02/19/17 Time: 15:56 Surgical Procedure: right hip replacement Checklist: Correct Patient Identifier, Correct procedure, History checked Correct side: Right Monitor Applied: EKG, BP, Pulse Oximetry Supplemental Oxygen via Nasal Cannula (L/min): 2 Sedation: Versed (mg): 1 Sedation: Fentanyl (mcg): 0 Indication: Post Op Analgesia Block Type: Other (fascia iliaca ) Catheter placed: No Sterile Technique: Yes Ultrasound used: Yes Anatomy identified: Yes Visual spread of Local: Yes Neuro Stimulation: No Blood on Needle Aspiration: No Smooth Injection of Local: Yes Pain with Injection of Local: No Prep: Chlorhexadine Needle: 22 x 50 mm Stimuplex Local: Ropivacaine (30ml of 0.5% rop, 0.9% NS 40ml all mixed. ) Volume (cc): 70 Number of Attempts: 1 Complications: None/effective block Vitals: vss though out, block per request of surgeon.
[2017-02-19] MEDS ORDERED: *HR* Phenylephrine 10 MG/ML VIAL ONE (16:21)
[2017-02-19] MEDS ORDERED: EPHEDrine 50 MG/ML VIAL ONE (16:28)
[2017-02-19] MEDS ORDERED: *HR* Rocuronium Bromide 50 MG/5 ML VIAL ONE (16:40)
[2017-02-19] MEDS ORDERED: *HR* Morphine 10 MG/ML VIAL ONE (16:40)
[2017-02-19] MEDS ORDERED: Neostigmine Methylsulfate 3 MG/3 ML SYRINGE ONE (16:41)
--- NOTE | 2017-02-19 17:08 | Orthopedic Operative Note ---
Date of procedure: 02/19/17 Pre-op diagnosis: Right hip arthritis Post-op diagnosis: same Procedure: Procedure: Right Total Hip Replacment Estimated blood loss: 200 cc Hardware: Metal and polyethylene replacement. Biomet DM Cup: 56 G7 fin cup Femoral size 15 echo full profile lateralized stem Head: +9 head with Tamera Procedural Notes: Severe arthritis femoral head acetabular socket. Operative procedure: The patient was brought to the operating room and placed on the operating room table. After general anesthesia was administered the patient was placed in the lateral decubitus position with the operative leg up. All pressure points were padded appropriately and the head was stabilized in the neutral position. The operative extremity was prepped and draped in the sterile surgical fashion patient received IV antibiotic prior to skin incision. A standard posterior approach is made to the operative hip, the incision was made through the skin and subcutaneous tissue hemostasis was obtained with Bovie cautery. Using careful sharp dissection the fascia was identified and incised exposing the external rotators. The external rotators were released off the greater trochanter and tagged with #2 FiberWire suture. The capsule was T'd open and the hip was brought into internal rotation. Patient noted to have grade 4 arthritic changes femoral head. The femoral neck cut was made at the appropriate level. An anterior capsulotomy was performed for the anterior retractor. Soft tissues removed from the acetabulum. Patient noted to have grade 4 arthritic changes acetabulum. Acetabulum was first reamed medially, and then reamed in 15 degrees of anteversion and 45 degrees off the horizontal. It was reamed up to the appropriate size 56. The appropriate-sized 56 acetabular cup was impacted in place in 15 degrees of anteversion and 45 degrees off the horizontal. This had good fit and fixation. The hip was brought back in to internal rotation and prepared with the box press operator followed by the canal finder followed by broaching process in 20 degrees anteversion. It was broached up to the appropriate size 15. The femoral implant was impacted in place in 20 degrees of anteversion. Trial reduction found the hip to be stable with 9 head and Tamera. The trials were removed and the real implants were impacted in place. The hip was reduced, patient had apparent equal leg lengths. The hip had excellent stability with forward flexion to 90 degrees adduction of 30 degrees and internal rotation of 60 degrees. The hip had no shuck. The hips after 2 minutes with a Betadine saline solution. It was irrigated out with 2 L of pulse irrigation. The hip was closed by the PA. Fascia was closed with a running #2 PDS suture. The deep tissue was irrigated and closed deep with #1 PDS suture superficially with 0 PDS suture and skin was closed with Dermabond and skin lane. The patient was placed in a sterile dressing and abduction pillow. The patient was extubated and transferred to the recovery room in stable condition. Anesthesia: GETA Surgeon: Frank Coy [employer] Mixer: Jolene Dean Condition: stable Disposition: PACU
[2017-02-19] MEDS: *HR* HYDROmorphone (PF) 1 MG/ML SYRINGE IVP PRN ×2 (17:38→17:52)
[2017-02-19 17:57] LABS: Hematocrit 38.9 % (37.5-50.1)
[2017-02-19 17:59] LABS: Hemoglobin 12.1 g/dL (12.9-16.9)
[2017-02-19] MEDS ORDERED: *HR* Enoxaparin 30 MG/0.3 ML SYRINGE SQ SCH (18:00)
--- NOTE | 2017-02-19 18:34 | Anesthesia Evaluation Post Op ---
Date of Encounter: 02/19/17 Time of Encounter: 18:31 - Vital Signs Vital Signs: vss - Lungs Lungs: Clear Ascult./Percussion - Airway Airway: Non-obstructed - Cardiovascular Baseline Rhythm - Mental Status Mental Status: Alert & Oriented, Answers Appropriately - Pain Pain Scale used: Abebe-Duckworth (Faces) (tolerable) - Nausea Vomiting Nausea Vomiting: Not Present - Hydration Hydration: Ice chips - Discharge PostOp Status: Transfer Patient to floor
[2017-02-19] MEDS ORDERED: Ondansetron 4 MG/2 ML VIAL IVP PRN (18:47)
[2017-02-19] MEDS ORDERED: *HR* OxyCODONE Immed Rel 5 MG TABLET PO PRN (18:47)
[2017-02-19] MEDS ORDERED: Ringers Solution, Lactated 1,000 ML IVC SCH (18:47)
[2017-02-19] MEDS ORDERED: Naloxone 0.4 MG/ML INJ IVP PRN (18:47)
[2017-02-19] MEDS: ceFAZolin 2,000 MG in D5% in Water 100 ML IVPB SCH (20:06)
[2017-02-19] MEDS: ALPRAZolam 0.5 MG TABLET PO SCH ×2 (20:07→20:08)
[2017-02-19] MEDS: *HR* OxyCODONE Immed Rel 5 MG TABLET PO PRN (20:07)
[2017-02-19] MEDS: Ascorbic Acid 500 MG TABLET PO SCH (20:07)
[2017-02-19] MEDS: Gabapentin 300 MG CAPSULE PO SCH (20:19)
[2017-02-19] MEDS: (Aclidinium Bromide [Tudorza Pressair] 400 MCG) IH SCH (20:19)
[2017-02-19] MEDS: Furosemide 40 MG TABLET PO SCH (20:19)
[2017-02-19] MEDS ORDERED: Sennosides 8.6 MG TABLET PO PRN (21:00)
[2017-02-19] MEDS ORDERED: Temazepam 15 MG CAPSULE PO PRN (21:00)
[2017-02-19] MEDS ORDERED: MOM Conc 10 ML UD.LIQ PO PRN (21:00)
[2017-02-19 23:02] LABS: Albumin 2.9 g/dL (3.5-5.0); Albumin/Globulin Ratio 0.9 (1.1-2.2); Bilirubin,Total 0.4 mg/dL (0.2-1.2); Calcium 8.2 mg/dL (8.6-10.8); Globulin 3.2 g/dL (2.4-3.5); Potassium 5.6 mEq/L (3.5-4.5); Total Protein 6.1 g/dL (6.0-8.3)
[2017-02-20] MEDS: ceFAZolin 2,000 MG in D5% in Water 100 ML IVPB SCH (00:28)
[2017-02-20] MEDS: *HR* OxyCODONE Immed Rel 5 MG TABLET PO PRN ×4 (00:48→17:50)
[2017-02-20] MEDS ORDERED: ceFAZolin 2,000 MG in D5% in Water 100 ML IVPB SCH (04:00)
[2017-02-20] MEDS: *HR* Enoxaparin 30 MG/0.3 ML SYRINGE SQ SCH ×2 (05:10→17:50)
[2017-02-20 05:43] LABS: Hematocrit 35.2 % (37.5-50.1); Hemoglobin 11.3 g/dL (12.9-16.9)
[2017-02-20 05:54] LABS: Calcium 8.6 mg/dL (8.6-10.8)
[2017-02-20 05:55] LABS: Potassium 6.1 mEq/L (3.5-4.5)
--- NOTE | 2017-02-20 06:42 | Orthopedics Progress Note ---
Date of Encounter: 02/20/17 Time of Encounter: 06:42 - Assessment and Plan (1) Failed kidney transplant Current Visit: Yes Status: Chronic (2) HTN (hypertension) Current Visit: No Status: Chronic Qualifiers: Hypertension type: unspecified Qualified Code(s): I10 - Essential (primary ) hypertension (3) Tobacco use Current Visit: No Status: Chronic (4) ESRD (end stage renal disease) on dialysis Current Visit: No Status: Chronic (5) COPD (chronic obstructive pulmonary disease) Current Visit: No Status: Chronic Qualifiers: COPD type: chronic bronchitis Chronic bronchitis type: unspecified Qualified Code(s): J42 - Unspecified chronic bronchitis (6) Arthritis of right hip Current Visit: Yes Status: Chronic (7) Status post total hip replacement, right Current Visit: Yes Status: Acute Subjective Interval history: Patient was seen this morning doing well without complaints. Afebrile vital signs stable. Operative extremity: Neurovascularly intact Dressing clean dry and intact Calves nontender Assessment and plan: Continue with postoperative care Hematocrit 35, potassium 6.1. Patient for dialysis today Objective Vital signs: Vital Signs Temp Pulse Resp BP Pulse Ox 02/20/17 03:19 97.9 F 53 17 120/74 97 02/19/17 22:58 97.7 F 56 16 106/65 98 02/19/17 21:24 98.3 F 58 16 95/62 02/19/17 20:29 98 02/19/17 20:13 97.6 F 58 18 147/63 98 02/19/17 19:06 97.6 F 67 17 135/78 97 02/19/17 18:05 98 F 53 14 145/88 99 02/19/17 17:55 98 F 54 16 147/83 98 02/19/17 17:45 59 16 132/94 98 02/19/17 17:35 66 16 157/96 98 02/19/17 17:25 98.1 F 65 14 145/94 99 02/19/17 16:06 84 16 165/93 94 02/19/17 15:52 68 16 158/72 97 02/19/17 13:05 18 96 02/19/17 12:56 98.4 F 65 18 155/90 96 Intake and Output 02/19/17 02/19/17 02/20/17 15:59 23:59 07:59 Output Total 200 / 200 125 / 125 Balance -200 / -200 -125 / -125 Output: Urine 125 / 125 Estimated Blood Loss 200 / 200 Other: Weight 70.307 kg 71.5 kg Blood Glucose* 87 93 Patient Weight 02/20/17 23:59 Weight 71.5 kg - Labs CBC & BMP: 02/20/17 05:30 02/20/17 05:30 Labs: Abnormal lab results Hgb 11.3 g/dL (12.9-16.9) L 02/20/17 05:30 Hct 35.2 % (37.5-50.1) L 02/20/17 05:30 Sodium 134 mEq/L (136-145) L 02/20/17 05:30 Potassium 6.1 mEq/L (3.5-4.5) H 02/20/17 05:30 Carbon Dioxide 15 mEq/L (19-29) L 02/20/17 05:30 BUN 42 mg/dL (8-26) H 02/20/17 05:30 Creatinine 4.63 mg/dL (0.72-1.25) H 02/20/17 05:30 Est GFR ( Amer) 16 (> 60) L 02/20/17 05:30 Est GFR (Non-Af Amer) 13 (> 60) L 02/20/17 05:30 Glucose 127 mg/dL (70-99) H 02/20/17 05:30 POC Glucose 93 (58-89) H 02/19/17 18:47 Albumin 2.9 g/dL (3.5-5.0) L 02/19/17 20:56 Albumin/Globulin Ratio 0.9 (1.1-2.2) L 02/19/17 20:56 - VTE Documentation of Mechanical Device: Venous foot pump, device Consult Discharge Plan - Plan Referrals: Kingsley Colbert MD [Primary Care Provider] -
[2017-02-20] MEDS: *HR* HYDROmorphone (PF) 1 MG/ML SYRINGE IVP PRN ×4 (08:57→21:24)
[2017-02-20] MEDS: Ascorbic Acid 500 MG TABLET PO SCH ×2 (08:57→17:51)
[2017-02-20] MEDS: predniSONE 10 MG TABLET PO SCH (08:58)
[2017-02-20] MEDS: ALPRAZolam 0.5 MG TABLET PO SCH ×3 (08:58→21:24)
[2017-02-20] MEDS: NIFEdipine XL (24 HR) 30 MG TAB.ER.24 PO SCH (08:58)
[2017-02-20] MEDS: Aspirin Enteric Coated 81 MG Tablet PO SCH (08:58)
[2017-02-20] MEDS: Furosemide 40 MG TABLET PO SCH ×2 (08:58→17:50)
[2017-02-20] MEDS: Multivit/Ca/Min/Fe/FA 1 TAB TABLET PO SCH (08:58)
[2017-02-20] MEDS: (Aclidinium Bromide [Tudorza Pressair] 400 MCG) IH SCH ×2 (08:58→21:25)
[2017-02-20] MEDS ORDERED: 0.9 % Sodium Chloride 250 ML IVC PRN (11:03)
[2017-02-20] MEDS ORDERED: 0.9 % Sodium Chloride 1,000 ML PRIME SCH (11:15)
--- NOTE | 2017-02-20 11:54 | Physician Discharge Referral ---
<Ev Jamison L - Last Filed: 02/20/17 11:48> Home Health/Hosp Referral Info Transfer to: Home Health Attending Provider: Provider in Charge Post Discharge: PCP - Diagnosis (1) Arthritis of right hip Priority: Primary Status: Chronic (2) Status post total hip replacement, right Priority: Primary Status: Acute (3) HTN (hypertension) Priority: Secondary Status: Chronic (4) Tobacco use Priority: Secondary Status: Chronic (5) ESRD (end stage renal disease) on dialysis Priority: Secondary Status: Chronic (6) History of kidney transplant Priority: Secondary Status: Chronic (7) COPD (chronic obstructive pulmonary disease) Priority: Secondary Status: Chronic - Respiratory Orders None Smoking Cessation: Smoking cessation has been advised. For more information, call the [place] Tobacco Quit Line at 7-136-LSSQ-NOW. - Diet/Nutrition Diet/Nutrition Orders: Renal - Activity Activity Orders: Up ad antolin, Ambulate - Services Needed Following services are medically necessary services: Nursing, Home Health Aide, Physical Therapy, Occupational Therapy Home Care Orders: Opsite dressing, leave intact until first post-operative visit. If dressing becomes >50% saturated, contact office, remove dressing and place appropriate dressing in its place. Do not allow for dressing to get wet. Oswald in place, plan to remove at post-operative day #14-16. Total HIP Joint Precautions x 6 weeks Apply cold therapy wrap 3-6x/day for 20 minutes at a time. Encourage ambulation throughout the day Use Incentive spirometer 10x/hour. Elevate affected extremity above heart as tolerated. Brace: Wear Hip ABDuction brace at night x 6 weeks. *Dialysis patient - dialyze M, W, F - Transfer Medications Home Medications: ALPRAZolam [Xanax 0.5 MG Tablet] 0.5 mg PO TID 06/15/15 [History] Aclidinium [place] [Tudorza Pressair] 400 mcg IH BID 06/15/15 [History] Carvedilol [Coreg] 25 mg PO BID 06/15/15 [History] Albuterol Sulfate [Ventolin Hfa] 2 puff IH Q4H PRN 09/25/16 [History] Aspirin [Lo-Dose Aspirin EC] 81 mg PO DAILY 09/25/16 [History] Dicyclomine [Bentyl] 10 mg PO QID PRN 09/25/16 [History] Furosemide [Lasix] 40 mg PO BID 09/25/16 [History] Gabapentin [Neurontin] 300 mg PO HS 09/25/16 [History] NIFEdipine [Nifedipine ER] 30 mg PO DAILY 09/25/16 [History] Pantoprazole Sodium [Protonix] 40 mg PO DAILY 09/25/16 [History] predniSONE [PredniSONE] 10 mg PO DAILY 09/25/16 [History] Aspirin Enteric Coated [Aspirin EC] 325 mg PO DAILY #21 tablet. 02/18/17 [Rx] OxyCODONE/APAP 5/325 [Percocet 5/325 MG] 1 - 2 each PO Q6HR PRN #40 tab [Rx] Allergies/Adverse Reactions: 3 Allergy/AdvReac Type Severity Reaction Status Date / Time No Known Allergies Allergy Verified 02/19/17 13:07 Certification: Further, I certify that my clinical findings support that this patient is homebound (i.e. absences from home require considerable and taxing effort and are for medical reasons or baptist services or infrequently or short duration when for other reasons) because: Attestation: My signature below is to certify that this patient is under my care and that I, or nurse practitioner, or a physician's assistant office manager working with me, has a face-to -face encounter with this patient. <Frank Coy - Last Filed: 02/23/17 06:33> - Diagnosis (1) Failed kidney transplant Status: Chronic (2) HTN (hypertension) Status: Chronic (3) Tobacco use Status: Chronic (4) ESRD (end stage renal disease) on dialysis Status: Chronic (5) COPD (chronic obstructive pulmonary disease) Status: Chronic (6) Arthritis of right hip Status: Chronic (7) Status post total hip replacement, right Status: Acute (8) Acute blood loss anemia Status: Acute - Respiratory Orders Smoking Cessation: Smoking cessation has been advised. For more information, call the [place] Tobacco Quit Line at 5-030-ETHS-NOW. Certification: Further, I certify that my clinical findings support that this patient is homebound (i.e. absences from home require considerable and taxing effort and are for medical reasons or baptist services or infrequently or short duration when for other reasons) because: Homebound Reason: Patient requires assistance of a person or device to safely leave home Attestation: My signature below is to certify that this patient is under my care and that I, or nurse practitioner, or a physician's assistant office manager working with me, has a face-to -face encounter with this patient.
--- NOTE | 2017-02-20 12:27 | Nephrology Consult Note ---
Date of Encounter: 02/20/17 Time of Encounter: 12:24 Assessment and Plan (1) ESRD (end stage renal disease) on dialysis Current Visit: No Status: Chronic Patient did not go to his regular dialysis treatment as expected before coming in for admission yesterday Will do HD today Plan for HD again tomorrow to get him back on his regular schedule. Renal diet Avoid nephrotoxins if possible (2) Status post total hip replacement, right Current Visit: Yes Status: Acute per orthopedics team (3) Hyperkalemia Current Visit: Yes Status: Acute K+ 6.1 Should improve with dialysis May need to use a 1 K+ bath History of Present Illness - Reason for Consult Consult date: 02/20/17 - Chief Complaint ESRD on HD, right hip replacement - History of Present Illness Mr Sherwood is a 56 year old male well known to our practice with a PMH of ESRD on HD, NM, HTN, arrhythmia, and CAD who was admitted for a total right hip arthroplasty on 02/19. Nephrology has been consulted to manage his HD while admitted. Past Med Surg Social Fam HX - Past Medical History Medical history: COPD, CVA, dialysis, hypertension, renal disease, other Psychiatric history: no psych history - Past Surgical History Surgical History: appendectomy, transplant - Social History Smoking Status: Current every day smoker Packs per day: 0.5 Smokeless Tobacco Status: No Alcohol use: none Drug use: none - Family History Mother Living Status: Hx Family Cardiac Disorders: Yes Hx Family Respiratory Disorders: Yes Hx Family Cancer: No Hx Family GI Disorders: No Hx Family Endocrine Disorder: Yes Hx Family Neuromuscular Disorders: No Hx Family Neurologic Disorders: No Hx Family HEENT Disorders: No Hx Family Autoimmune Disorders: No Father Cause of : NM Hx Family Cardiac Disorders: Yes Medications and Allergies ALPRAZolam [Xanax 0.5 MG Tablet] 0.5 mg PO TID 06/15/15 [History] Aclidinium [place] [Tudorza Pressair] 400 mcg IH BID 06/15/15 [History] Carvedilol [Coreg] 25 mg PO BID 06/15/15 [History] Albuterol Sulfate [Ventolin Hfa] 2 puff IH Q4H PRN 09/25/16 [History] Aspirin [Lo-Dose Aspirin EC] 81 mg PO DAILY 09/25/16 [History] Dicyclomine [Bentyl] 10 mg PO QID PRN 09/25/16 [History] Furosemide [Lasix] 40 mg PO BID 09/25/16 [History] Gabapentin [Neurontin] 300 mg PO HS 09/25/16 [History] NIFEdipine [Nifedipine ER] 30 mg PO DAILY 09/25/16 [History] Pantoprazole Sodium [Protonix] 40 mg PO DAILY 09/25/16 [History] predniSONE [PredniSONE] 10 mg PO DAILY 09/25/16 [History] Aspirin Enteric Coated [Aspirin EC] 325 mg PO DAILY #21 tablet. 02/18/17 [Rx] OxyCODONE/APAP 5/325 [Percocet 5/325 MG] 1 - 2 each PO Q6HR PRN #40 tab [Rx] 3 Allergy/AdvReac Type Severity Reaction Status Date / Time No Known Allergies Allergy Verified 02/19/17 13:07 Review of Systems All Systems: reviewed and no additional remarkable complaints except as stated Constitutional: no fatigue, no fever(s) Nose, mouth and throat: no dizziness Cardiovascular: no chest pain, no dyspnea, no leg edema Respiratory: no dyspnea Gastrointestinal: no abdominal pain Neurological: no behavioral changes Exam - Vital Signs Vital signs: Initial Vital Signs Temp Pulse Resp BP Pulse Ox 98.4 F 65 18 155/90 96 02/19/17 12:56 02/19/17 12:56 02/19/17 12:56 02/19/17 12:56 02/19/17 12:56 Vital Signs - Last 8 Hours Temp Pulse Resp BP Pulse Ox 02/20/17 11:24 97.7 F 89 13 94/61 96 02/20/17 09:05 96 02/20/17 08:01 98.3 F 61 14 123/75 96 Intake and Output 02/19/17 02/20/17 02/20/17 23:59 07:59 15:59 Intake Total 240 / 240 Output Total 200 / 200 125 / 125 Balance -200 / -200 -125 / -125 240 / 240 Intake: Oral 240 / 240 Output: Urine 125 / 125 Estimated Blood Loss 200 / 200 Other: Meal Breakfast Percent of Meal Consumed 100% # Voids 1 Weight 71.5 kg Blood Glucose* 93 140 Patient Weight 02/20/17 23:59 Weight 71.5 kg - General Appearance General appearance: well-developed, well-nourished EENT: ATNC, mucous membranes dry, hearing intact, vision intact Neck: supple Cardiology: no edema, regular rate, regular rhythm - Dialysis Access Dialysis Vascular Access: Arteriovenous Fistula Gastrointestinal: no tenderness, no guarding Integumentary: warm and dry Neurologic: alert and oriented x3 Psychiatric: mood/affect appropriate, cooperative Results - Lab Results 02/20/17 05:30 02/20/17 05:30 Most recent lab results Calcium 8.6 mg/dL (8.6-10.8) 02/20/17 05:30 Consult Discharge Plan - Plan Referrals: Kinglsey Colbert MD [Primary Care Provider] - 02/27/17 1:15 pm (Please follow up as schedule)
[2017-02-20 13:10] LABS: Hepatitis B Surface Antigen Nonreactive (Nonreactive)
[2017-02-20] MEDS: Gabapentin 300 MG CAPSULE PO SCH (21:24)
[2017-02-21] MEDS: *HR* OxyCODONE Immed Rel 5 MG TABLET PO PRN ×2 (01:00→18:20)
[2017-02-21] MEDS: *HR* HYDROmorphone (PF) 1 MG/ML SYRINGE IVP PRN ×4 (05:35→21:14)
[2017-02-21] MEDS: *HR* Enoxaparin 30 MG/0.3 ML SYRINGE SQ SCH ×2 (05:47→17:21)
[2017-02-21 06:29] LABS: Hematocrit 30.6 % (37.5-50.1); Hemoglobin 9.9 g/dL (12.9-16.9)
--- NOTE | 2017-02-21 06:43 | Orthopedics Progress Note ---
Date of Encounter: 02/21/17 Time of Encounter: 06:42 - Assessment and Plan (1) Failed kidney transplant Current Visit: Yes Status: Chronic (2) HTN (hypertension) Current Visit: No Status: Chronic Qualifiers: Hypertension type: unspecified Qualified Code(s): I10 - Essential (primary ) hypertension (3) Tobacco use Current Visit: No Status: Chronic (4) ESRD (end stage renal disease) on dialysis Current Visit: No Status: Chronic (5) COPD (chronic obstructive pulmonary disease) Current Visit: No Status: Chronic Qualifiers: COPD type: chronic bronchitis Chronic bronchitis type: unspecified Qualified Code(s): J42 - Unspecified chronic bronchitis (6) Arthritis of right hip Current Visit: Yes Status: Chronic (7) Status post total hip replacement, right Current Visit: Yes Status: Acute (8) Acute blood loss anemia Current Visit: Yes Status: Acute Subjective Interval history: Patient was seen this morning doing well without complaints. Afebrile vital signs stable. Operative extremity: Neurovascularly intact Dressing clean dry and intact Calves nontender Assessment and plan: Continue with postoperative care Hematocrit 30 discharged tomorrow Objective Vital signs: Vital Signs Temp Pulse Resp BP Pulse Ox 02/20/17 23:52 98.7 F 82 18 89/54 96 02/20/17 21:37 98 02/20/17 19:10 99.5 F 92 16 100/61 95 02/20/17 17:00 97.5 F L 20 105/63 02/20/17 16:45 104/48 02/20/17 16:15 107/72 02/20/17 15:45 106/74 02/20/17 15:15 126/78 02/20/17 14:45 100/77 02/20/17 14:15 98/62 02/20/17 13:45 101/62 02/20/17 13:17 97.9 F 20 116/73 02/20/17 11:24 97.7 F 89 13 94/61 96 02/20/17 09:05 96 02/20/17 08:01 98.3 F 61 14 123/75 96 Intake and Output 02/20/17 02/20/17 02/21/17 15:59 23:59 07:59 Intake Total 1200 / 1200 360 / 360 Output Total 3600 / 3600 Balance 1200 / 1200 -3240 / -3240 Intake: Oral 600 / 600 360 / 360 Intake, Rinseback and Flushes 600 / 600 Output: Total Dialysis (HD) Output 3600 / 3600 Other: Meal Lunch Dinner Percent of Meal Consumed 100% 10% # Voids 1 Blood Glucose* 140 123 Hemodialysis Net Fluid Removed 2562 3600 (mL) - Labs CBC & BMP: 02/21/17 05:35 02/20/17 05:30 Labs: Abnormal lab results Hgb 9.9 g/dL (12.9-16.9) L 02/21/17 05:35 Hct 30.6 % (37.5-50.1) L 02/21/17 05:35 Sodium 134 mEq/L (136-145) L 02/20/17 05:30 Potassium 6.1 mEq/L (3.5-4.5) H 02/20/17 05:30 Carbon Dioxide 15 mEq/L (19-29) L 02/20/17 05:30 BUN 42 mg/dL (8-26) H 02/20/17 05:30 Creatinine 4.63 mg/dL (0.72-1.25) H 02/20/17 05:30 Est GFR ( Amer) 16 (> 60) L 02/20/17 05:30 Est GFR (Non-Af Amer) 13 (> 60) L 02/20/17 05:30 Glucose 127 mg/dL (70-99) H 02/20/17 05:30 POC Glucose 123 (58-89) H 02/20/17 16:38 Albumin 2.9 g/dL (3.5-5.0) L 02/19/17 20:56 Albumin/Globulin Ratio 0.9 (1.1-2.2) L 02/19/17 20:56 - VTE Documentation of Mechanical Device: Venous foot pump, device Consult Discharge Plan - Plan Referrals: Kingsley Colbert MD [Primary Care Provider] - 02/27/17 1:15 pm (Please follow up as schedule)
[2017-02-21] MEDS ORDERED: 0.9 % Sodium Chloride 250 ML IVC PRN (07:45)
[2017-02-21] MEDS ORDERED: 0.9 % Sodium Chloride 1,000 ML PRIME SCH (07:45)
[2017-02-21] MEDS: NIFEdipine XL (24 HR) 30 MG TAB.ER.24 PO SCH (07:59)
[2017-02-21] MEDS: Furosemide 40 MG TABLET PO SCH ×2 (07:59→17:21)
[2017-02-21] MEDS: (Aclidinium Bromide [Tudorza Pressair] 400 MCG) IH SCH ×2 (07:59→21:17)
[2017-02-21] MEDS ORDERED: 0.9 % Sodium Chloride 2,000 ML ONE (08:54)
[2017-02-21] MEDS: predniSONE 10 MG TABLET PO SCH (09:22)
[2017-02-21] MEDS: Multivit/Ca/Min/Fe/FA 1 TAB TABLET PO SCH (09:22)
[2017-02-21] MEDS: ALPRAZolam 0.5 MG TABLET PO SCH ×3 (09:22→21:14)
[2017-02-21] MEDS: Aspirin Enteric Coated 81 MG Tablet PO SCH (09:22)
[2017-02-21] MEDS: Ascorbic Acid 500 MG TABLET PO SCH ×2 (09:22→17:21)
[2017-02-21 09:40] LABS: Calcium 8.5 mg/dL (8.6-10.8)
[2017-02-21 09:41] LABS: Potassium 3.5 mEq/L (3.5-4.5)
--- NOTE | 2017-02-21 09:41 | Nephrology Progress Note ---
Date of Encounter: 02/21/17 Time of Encounter: 09:39 - Assessment and Plan (1) ESRD (end stage renal disease) on dialysis Current Visit: No Status: Chronic HD today Continue renal diet Avoid nephrotoxins if possible (2) Status post total hip replacement, right Current Visit: Yes Status: Acute per orthopedics team (3) Hyperkalemia Current Visit: Yes Status: Acute No BMP done yet today but order in for lab Renal diet HD today Subjective Principal diagnosis: total right hip replacement, ESRD on dialysis Interval history: Patient seen and examined. Right hip very painful today Objective - Vital Signs Vital signs: Vital Signs Temp Pulse Resp BP Pulse Ox 02/21/17 07:00 98.3 F 85 20 103/62 91 02/20/17 23:52 98.7 F 82 18 89/54 96 02/20/17 21:37 98 02/20/17 19:10 99.5 F 92 16 100/61 95 02/20/17 17:00 97.5 F L 20 105/63 02/20/17 16:45 104/48 02/20/17 16:15 107/72 02/20/17 15:45 106/74 02/20/17 15:15 126/78 02/20/17 14:45 100/77 02/20/17 14:15 98/62 02/20/17 13:45 101/62 02/20/17 13:17 97.9 F 20 116/73 02/20/17 11:24 97.7 F 89 13 94/61 96 Intake and Output 02/20/17 02/21/17 02/21/17 23:59 07:59 15:59 Intake Total 360 / 360 Output Total 3600 / 3600 Balance -3240 / -3240 Intake: Oral 360 / 360 Output: Total Dialysis (HD) Output 3600 / 3600 Other: Meal Dinner Percent of Meal Consumed 10% Blood Glucose* 123 99 Hemodialysis Net Fluid Removed 3600 (mL) - General Appearance General appearance: Present: well-developed, well-nourished EENT: Present: ATNC, mucous membranes moist, hearing intact, vision intact Neck: Present: supple Respiratory: Present: wheezing Cardiology: Present: no edema, normal S1, normal S2 Dialysis Vascular Access: Arteriovenous Fistula Gastrointestinal: Present: no tenderness, no guarding Integumentary: Present: warm and dry Neurologic: Present: alert and oriented x3 Psychiatric: Present: mood/affect appropriate, cooperative - Lab 02/21/17 05:35 02/20/17 05:30 Most recent lab results Calcium 8.6 mg/dL (8.6-10.8) 02/20/17 05:30 - VTE Documentation of Mechanical Device: Venous foot pump, device Consult Discharge Plan - Plan Referrals: Kingsley Colbert MD [Primary Care Provider] - 02/27/17 1:15 pm (Please follow up as schedule)
[2017-02-21 11:16] LABS: Hepatitis B Surface Antibody 148.12 mIU/mL
--- NOTE | 2017-02-21 11:42 | Event Note ---
Date of Encounter: 02/21/17 Time of Encounter: 13:00 PCR- R TKR 02/19/17 POD#2 PCR - Patient seen at bedside. Pain control: Adequate Participating in PT. All questions and concerns addressed. Educated on use of incentive spirometer, ambulation, and hydration. Patient educated on post-operative restrictions and care. Addressed: see above as well as discussed with patient the importance of consistency with regard to his dialysis for optimal outcome of his recent surgery. Patient verbalized understanding. D/C plan:. FELI Seth
[2017-02-21] MEDS: Gabapentin 300 MG CAPSULE PO SCH (21:14)
[2017-02-22] MEDS: *HR* OxyCODONE Immed Rel 5 MG TABLET PO PRN ×4 (01:43→22:46)
[2017-02-22] MEDS: *HR* HYDROmorphone (PF) 1 MG/ML SYRINGE IVP PRN ×2 (05:55→20:05)
[2017-02-22] MEDS: *HR* Enoxaparin 30 MG/0.3 ML SYRINGE SQ SCH (05:57)
[2017-02-22] MEDS: Ascorbic Acid 500 MG TABLET PO SCH ×2 (08:15→16:10)
[2017-02-22] MEDS: NIFEdipine XL (24 HR) 30 MG TAB.ER.24 PO SCH (08:15)
[2017-02-22] MEDS: Multivit/Ca/Min/Fe/FA 1 TAB TABLET PO SCH (08:15)
[2017-02-22] MEDS: (Aclidinium Bromide [Tudorza Pressair] 400 MCG) IH SCH ×2 (08:15→21:45)
[2017-02-22] MEDS: Furosemide 40 MG TABLET PO SCH ×2 (08:15→16:10)
[2017-02-22] MEDS: Aspirin Enteric Coated 81 MG Tablet PO SCH (08:16)
[2017-02-22] MEDS: predniSONE 10 MG TABLET PO SCH (08:16)
[2017-02-22 09:38] LABS: Hematocrit 26.2 % (37.5-50.1)
[2017-02-22 09:40] LABS: Hemoglobin 8.3 g/dL (12.9-16.9)
[2017-02-22] MEDS: ALPRAZolam 0.5 MG TABLET PO SCH ×3 (11:05→21:44)
[2017-02-22] MEDS ORDERED: Furosemide 20 MG/2 ML VIAL IVP PRN (11:09)
[2017-02-22] MEDS ORDERED: 0.9 % Sodium Chloride 250 ML IVC SCH (11:15)
--- NOTE | 2017-02-22 11:54 | Nephrology Progress Note ---
Date of Encounter: 02/22/17 Time of Encounter: 11:52 - Assessment and Plan (1) ESRD (end stage renal disease) on dialysis Current Visit: No Status: Chronic Plan for HD tomorrow Continue renal diet Avoid nephrotoxins if possible Need BMP in am (2) Status post total hip replacement, right Current Visit: Yes Status: Acute per orthopedics team Subjective Principal diagnosis: total right hip replacement, ESRD on dialysis Interval history: Patient seen and examined. Doing better today, getting up by self and using walker to go to bathroom Objective - Vital Signs Vital signs: Vital Signs Temp Pulse Resp BP Pulse Ox 02/22/17 08:02 99.1 F 93 16 116/78 94 02/22/17 03:17 99.0 F 91 17 93/65 94 02/22/17 00:22 98.7 F 85 17 100/68 93 02/21/17 18:33 99.0 F 108 18 97/66 96 02/21/17 17:47 99.3 F 122 20 113/82 97 02/21/17 17:13 122 101/66 02/21/17 15:56 98.5 F 120 20 95/61 92 Intake and Output 02/21/17 02/22/17 02/22/17 23:59 07:59 15:59 Intake Total 120 / 120 600 / 600 360 / 360 Balance 120 / 120 600 / 600 360 / 360 Intake: Oral 120 / 120 600 / 600 360 / 360 Other: Meal Dinner Breakfast Percent of Meal Consumed 100% 85% # Voids 1 1 # Bowel Movements 1 - General Appearance General appearance: Present: well-developed, well-nourished EENT: Present: ATNC, mucous membranes moist, hearing intact, vision intact Neck: Present: supple Cardiology: Present: no edema, regular rate, regular rhythm Dialysis Vascular Access: Arteriovenous Fistula Gastrointestinal: Present: no tenderness, no guarding Integumentary: Present: warm and dry Neurologic: Present: alert and oriented x3 Psychiatric: Present: mood/affect appropriate, cooperative - Lab 02/22/17 09:29 02/21/17 08:53 Most recent lab results Calcium 8.5 mg/dL (8.6-10.8) L 02/21/17 08:53 - VTE Documentation of Mechanical Device: Intermittent pneumatic compression device Consult Discharge Plan - Plan Referrals: Kingsley Colbert MD [Primary Care Provider] - 02/27/17 1:15 pm (Please follow up as schedule)
--- NOTE | 2017-02-22 12:27 | Orthopedics Progress Note ---
<Jolene Dean E - Last Filed: 02/22/17 15:56> Date of Encounter: 02/22/17 Time of Encounter: 14:30 - Assessment and Plan (1) Status post total hip replacement, right Current Visit: Yes Status: Acute Patient to stay tonight and leave tomorrow after dialysis. Nurse to notify Dr. Jeong that patient will need dialysis tomorrow morning as inpatient. Dressing change prior to discharge tomorrow. Continue THR precautions. Patient verbalized understanding of importance of dialysis and states he will be compliant to aid in proper healing with his recent hip replacement. (2) Arthritis of left hip Current Visit: No Status: Chronic (3) HTN (hypertension) Current Visit: No Status: Chronic Qualifiers: Hypertension type: unspecified Qualified Code(s): I10 - Essential (primary ) hypertension (4) Tobacco use Current Visit: No Status: Chronic (5) ESRD (end stage renal disease) on dialysis Current Visit: No Status: Chronic (6) COPD (chronic obstructive pulmonary disease) Current Visit: No Status: Chronic Qualifiers: COPD type: chronic bronchitis Chronic bronchitis type: unspecified Qualified Code(s): J42 - Unspecified chronic bronchitis (7) Acute blood loss anemia Current Visit: Yes Status: Acute Subjective Interval history: Right THR 02/19/17 - POD#3 Patient seen at bedside and examined. Patient receiving first of two units of blood during bedside visit. On exam patient pale to face and mildly short of breath. He states he is improving with receiving blood per patient. He has minimal swelling to the operative right hip with no ecchymosis, erythema, or petechiae. Denies calf tenderness, nontender on exam with no warmth. He has full ROM of bilateral ankles and feet and is neurovascularly intact. Patient participating in PT - walking well during AM session today - will not receive PT this afternoon or likely tomorrow morning secondary to dialysis. D/w patient and nurse that given timing of receiving blood he will likely need to stay overnight for monitoring and patient states he would like that as he states he feels weak. Patient to stay tonight and leave tomorrow after dialysis. Nurse to notify Dr. Jeong that patient will need dialysis tomorrow morning as inpatient. Dressing change prior to discharge tomorrow. Patient verbalized understanding of importance of dialysis and states he will be compliant to aid in proper healing with his recent hip replacement. Objective Vital signs: Vital Signs Temp Pulse Resp BP Pulse Ox 02/22/17 13:40 97.9 F 67 18 120/70 94 02/22/17 13:24 97.7 F 77 18 82/51 94 02/22/17 12:06 98.1 F 65 16 96/65 97 02/22/17 08:02 99.1 F 93 16 116/78 94 02/22/17 03:17 99.0 F 91 17 93/65 94 02/22/17 00:22 98.7 F 85 17 100/68 93 02/21/17 18:33 99.0 F 108 18 97/66 96 02/21/17 17:47 99.3 F 122 20 113/82 97 02/21/17 17:13 122 101/66 Intake and Output 02/21/17 02/22/17 02/22/17 23:59 07:59 15:59 Intake Total 120 / 120 600 / 600 360 / 360 Balance 120 / 120 600 / 600 360 / 360 Intake: Oral 120 / 120 600 / 600 360 / 360 Blood Product 0 / 0 Rbcs Leuko Poor As-1 Unit 0 / 0 [id number] Other: Meal Dinner Breakfast Percent of Meal Consumed 100% 85% # Voids 1 1 # Bowel Movements 1 - Labs CBC & BMP: 02/22/17 09:29 02/21/17 08:53 Labs: Abnormal lab results Hgb 8.3 g/dL (12.9-16.9) L D 02/22/17 09:29 Hct 26.2 % (37.5-50.1) L 02/22/17 09:29 Creatinine 2.46 mg/dL (0.72-1.25) H 02/21/17 08:53 Est GFR ( Amer) 33 (> 60) L 02/21/17 08:53 Est GFR (Non-Af Amer) 27 (> 60) L 02/21/17 08:53 Glucose 104 mg/dL (70-99) H 02/21/17 08:53 POC Glucose 132 (58-89) H 02/21/17 16:01 Calcium 8.5 mg/dL (8.6-10.8) L 02/21/17 08:53 Albumin 2.9 g/dL (3.5-5.0) L 02/19/17 20:56 Albumin/Globulin Ratio 0.9 (1.1-2.2) L 02/19/17 20:56 Consult Discharge Plan - Plan Referrals: Kingsley Colbert MD [Primary Care Provider] - 02/27/17 1:15 pm (Please follow up as schedule) <Ev Jamison Pepito - Last Filed: 02/22/17 16:08> Date of Encounter: 02/22/17 Time of Encounter: 12:10 - Assessment and Plan (1) Arthritis of right hip Current Visit: Yes Status: Chronic (2) Status post total hip replacement, right Current Visit: Yes Status: Acute (3) HTN (hypertension) Current Visit: No Status: Chronic Qualifiers: Hypertension type: unspecified Qualified Code(s): I10 - Essential (primary ) hypertension (4) Tobacco use Current Visit: No Status: Chronic (5) ESRD (end stage renal disease) on dialysis Current Visit: No Status: Chronic (6) History of kidney transplant Current Visit: No Status: Chronic (7) COPD (chronic obstructive pulmonary disease) Current Visit: No Status: Chronic Qualifiers: COPD type: chronic bronchitis Chronic bronchitis type: unspecified Qualified Code(s): J42 - Unspecified chronic bronchitis Subjective Principal diagnosis: total right hip replacement, ESRD on dialysis Interval history: Right THR 02/19/17 - POD#3 Patient in restroom during AM rounds* Plan: Hip precautions D/C to HH tomorrow after dialysis Objective Vital signs: Vital Signs Temp Pulse Resp BP Pulse Ox 02/22/17 12:06 98.1 F 65 16 86/38 97 02/22/17 08:02 99.1 F 93 16 116/78 94 02/22/17 03:17 99.0 F 91 17 93/65 94 02/22/17 00:22 98.7 F 85 17 100/68 93 02/21/17 18:33 99.0 F 108 18 97/66 96 02/21/17 17:47 99.3 F 122 20 113/82 97 02/21/17 17:13 122 101/66 02/21/17 15:56 98.5 F 120 20 95/61 92 Intake and Output 02/21/17 02/22/17 02/22/17 23:59 07:59 15:59 Intake Total 120 / 120 600 / 600 360 / 360 Balance 120 / 120 600 / 600 360 / 360 Intake: Oral 120 / 120 600 / 600 360 / 360 Other: Meal Dinner Breakfast Percent of Meal Consumed 100% 85% # Voids 1 1 # Bowel Movements 1 Incision: clean and dry - Labs CBC & BMP: 02/22/17 09:29 02/21/17 08:53 Labs: Abnormal lab results Hgb 8.3 g/dL (12.9-16.9) L D 02/22/17 09:29 Hct 26.2 % (37.5-50.1) L 02/22/17 09:29 Creatinine 2.46 mg/dL (0.72-1.25) H 02/21/17 08:53 Est GFR ( Amer) 33 (> 60) L 02/21/17 08:53 Est GFR (Non-Af Amer) 27 (> 60) L 02/21/17 08:53 Glucose 104 mg/dL (70-99) H 02/21/17 08:53 POC Glucose 132 (58-89) H 02/21/17 16:01 Calcium 8.5 mg/dL (8.6-10.8) L 02/21/17 08:53 Albumin 2.9 g/dL (3.5-5.0) L 02/19/17 20:56 Albumin/Globulin Ratio 0.9 (1.1-2.2) L 02/19/17 20:56 - VTE Documentation of Mechanical Device: Intermittent pneumatic compression device
[2017-02-22] MEDS: Gabapentin 300 MG CAPSULE PO SCH (21:44)
[2017-02-23] MEDS: *HR* HYDROmorphone (PF) 1 MG/ML SYRINGE IVP PRN ×2 (03:54→11:27)
[2017-02-23 05:25] LABS: Hematocrit 30.4 % (37.5-50.1)
[2017-02-23 05:36] LABS: Calcium 8.6 mg/dL (8.6-10.8)
[2017-02-23 05:55] LABS: Potassium 4.5 mEq/L (3.5-4.5)
[2017-02-23] MEDS ORDERED: *HR* Enoxaparin 30 MG/0.3 ML SYRINGE SQ SCH (06:00)
--- NOTE | 2017-02-23 06:33 | Orthopedics Progress Note ---
Date of Encounter: 02/23/17 Time of Encounter: 06:32 - Assessment and Plan (1) Failed kidney transplant Current Visit: Yes Status: Chronic (2) HTN (hypertension) Current Visit: No Status: Chronic Qualifiers: Hypertension type: unspecified Qualified Code(s): I10 - Essential (primary ) hypertension (3) Tobacco use Current Visit: No Status: Chronic (4) ESRD (end stage renal disease) on dialysis Current Visit: No Status: Chronic (5) COPD (chronic obstructive pulmonary disease) Current Visit: No Status: Chronic Qualifiers: COPD type: chronic bronchitis Chronic bronchitis type: unspecified Qualified Code(s): J42 - Unspecified chronic bronchitis (6) Arthritis of right hip Current Visit: Yes Status: Chronic (7) Status post total hip replacement, right Current Visit: Yes Status: Acute (8) Acute blood loss anemia Current Visit: Yes Status: Acute Subjective Principal diagnosis: total right hip replacement, ESRD on dialysis Interval history: Patient was seen this morning doing well without complaints. Afebrile vital signs stable. Operative extremity: Neurovascularly intact Dressing clean dry and intact Calves nontender Assessment and plan: Continue with postoperative care Hematocrit 30 discharged after dialysis Objective Vital signs: Vital Signs Temp Pulse Resp BP Pulse Ox 02/23/17 00:17 97.9 F 77 18 127/78 93 02/22/17 20:40 97.7 F 66 18 123/77 95 02/22/17 19:12 98.1 F 79 18 137/72 93 02/22/17 17:50 98.3 F 18 128/80 02/22/17 16:58 98.4 F 81 17 111/67 93 02/22/17 15:55 98.1 F 16 123/73 02/22/17 13:40 97.9 F 67 18 120/70 94 02/22/17 13:24 97.7 F 77 18 82/51 94 02/22/17 12:06 98.1 F 65 16 96/65 97 02/22/17 08:02 99.1 F 93 16 116/78 94 Intake and Output 02/22/17 02/22/17 02/23/17 15:59 23:59 07:59 Intake Total 660 / 660 300 / 300 Balance 660 / 660 300 / 300 Intake: Oral 360 / 360 Blood Product 300 / 300 300 / 300 Rbcs Leuko Poor As-1 Unit 300 / 300 [id number] Rbcs Leuko Poor As-1 Unit 300 / 300 [id number] Other: Meal Breakfast Percent of Meal Consumed 85% - Labs CBC & BMP: 02/23/17 05:08 02/23/17 05:08 Labs: Abnormal lab results Hgb 10.0 g/dL (12.9-16.9) L D 02/23/17 05:08 Hct 30.4 % (37.5-50.1) L 02/23/17 05:08 Sodium 129 mEq/L (136-145) L D 02/23/17 05:08 Chloride 93 mEq/L (98-109) L 02/23/17 05:08 BUN 43 mg/dL (8-26) H D 02/23/17 05:08 Creatinine 4.65 mg/dL (0.72-1.25) H D 02/23/17 05:08 Est GFR ( Amer) 16 (> 60) L 02/23/17 05:08 Est GFR (Non-Af Amer) 13 (> 60) L 02/23/17 05:08 Glucose 116 mg/dL (70-99) H 02/23/17 05:08 POC Glucose 132 (58-89) H 02/21/17 16:01 Albumin 2.9 g/dL (3.5-5.0) L 02/19/17 20:56 Albumin/Globulin Ratio 0.9 (1.1-2.2) L 02/19/17 20:56 - VTE Documentation of Mechanical Device: Venous foot pump, device Consult Discharge Plan - Plan Referrals: Kingsley Colbert MD [Primary Care Provider] - 02/27/17 1:15 pm (Please follow up as schedule)
[2017-02-23] MEDS ORDERED: 0.9 % Sodium Chloride 250 ML IVC PRN (08:09)
[2017-02-23] MEDS: *HR* OxyCODONE Immed Rel 5 MG TABLET PO PRN (09:54)
[2017-02-23] MEDS ORDERED: 0.9 % Sodium Chloride 2,000 ML ONE (11:09)
--- NOTE | 2017-02-23 11:34 | Event Note ---
Date of Encounter: 02/23/17 Time of Encounter: 11:33 PCR- R TKR 02/19/17 POD#4 PCR - Patient seen at bedside in dialysis. Pain control: Adequate Participating in PT. All questions and concerns addressed. Educated on use of incentive spirometer, ambulation, and hydration. Patient educated on post-operative restrictions and care. Addressed: see above as well as discussed with patient the importance of consistency with regard to his dialysis for optimal outcome of his recent surgery. Patient verbalized understanding. Wound concern regarding incison site has become surrounded with dull erythema appx 10cm in all directions surrounding incision site, edematous and indurated with exquisite pain with palpation. No fluctuance or increased drainage noted. Communicated with Dr. Kilgore regarding Ortho concern re: infection and recommendations for antibiotic dosing including coverage for MRSA. She recommended 1 g Vanc and 80mg Gent following dialysis MWF. Will put this in as first dose now for patient to receive following dialysis today prior to discharge. Communicated these directions to charge nurse on 3NE who verbalized understanding. Patient to get these antibiotics following dialysis for the next 2 weeks. D/C plan:. FELI Seth Discharge today to home once released from dialysis and receiving abx as noted above. Follow up as scheduled.
[2017-02-23] MEDS ORDERED: Vancomycin 1,000 MG in D5% in Water 250 ML IVPB STA (12:29)
[2017-02-23] MEDS ORDERED: Gentamicin 80 MG in 0.9 % Sodium Chloride 100 ML IVPB STA (12:32)
[2017-02-23] MEDS: Furosemide 40 MG TABLET PO SCH (13:05)
[2017-02-23] MEDS: ALPRAZolam 0.5 MG TABLET PO SCH ×2 (13:05→13:39)
[2017-02-23] MEDS: Ascorbic Acid 500 MG TABLET PO SCH (13:05)
[2017-02-23] MEDS: Multivit/Ca/Min/Fe/FA 1 TAB TABLET PO SCH (13:05)
[2017-02-23] MEDS: predniSONE 10 MG TABLET PO SCH (13:06)
[2017-02-23] MEDS: (Aclidinium Bromide [Tudorza Pressair] 400 MCG) IH SCH (13:06)
[2017-02-23] MEDS: NIFEdipine XL (24 HR) 30 MG TAB.ER.24 PO SCH (13:07)
[2017-02-23] MEDS: Aspirin Enteric Coated 81 MG Tablet PO SCH (13:07)
[2017-02-23 13:16] VITALS: BP 133/95
--- NOTE | 2017-02-23 14:12 | Nephrology Progress Note ---
Date of Encounter: 02/23/17 Time of Encounter: 11:30 - Assessment and Plan (1) ESRD (end stage renal disease) on dialysis Current Visit: No Status: Chronic Continue HD with UF as tolerated Will give iv dilaudid for pain Low sodium noted, should improve with HD (2) Acute blood loss anemia Current Visit: Yes Status: Acute Hgb fairly stable at 10, will monitor (3) Status post total hip replacement, right Current Visit: Yes Status: Acute Per ortho. Discussed possible infection of surgical site and for che coverage, recommend vanco/gent which we would be happy to continue outpatient in HD for 2 weeks and as needed Subjective Principal diagnosis: total right hip replacement, ESRD on dialysis Interval history: Pt seen and examined on HD with complaint of pain at surgical hip site despite roxicodone an hour and a half ago. Objective - Vital Signs Vital signs: Vital Signs Temp Pulse Resp BP Pulse Ox 02/23/17 13:15 97.9 F 105 18 133/95 94 02/23/17 12:40 97.7 F 17 115/73 02/23/17 12:30 126/84 02/23/17 12:15 113/87 02/23/17 12:00 121/89 02/23/17 11:45 117/85 02/23/17 11:30 118/69 02/23/17 11:15 113/73 02/23/17 11:00 127/67 02/23/17 10:45 119/79 02/23/17 10:30 121/79 02/23/17 10:15 113/67 02/23/17 10:00 123/68 02/23/17 09:45 116/66 02/23/17 09:30 111/68 02/23/17 09:15 119/81 02/23/17 09:00 98.0 F 17 119/87 02/23/17 07:10 98.1 F 74 18 132/85 96 02/23/17 00:17 97.9 F 77 18 127/78 93 02/22/17 20:40 97.7 F 66 18 123/77 95 02/22/17 19:12 98.1 F 79 18 137/72 93 02/22/17 17:50 98.3 F 18 128/80 02/22/17 16:58 98.4 F 81 17 111/67 93 02/22/17 15:55 98.1 F 16 123/73 Intake and Output 02/22/17 02/23/17 02/23/17 23:59 07:59 15:59 Intake Total 300 / 300 960 / 960 Output Total 3650 / 3650 Balance 300 / 300 -2690 / -2690 Intake: Oral 360 / 360 Blood Product 300 / 300 Rbcs Leuko Poor As-1 Unit 300 / 300 [id number] Intake, Rinseback and Flushes 600 / 600 Output: Urine 50 / 50 Total Dialysis (HD) Output 3600 / 3600 Other: Meal Breakfast Percent of Meal Consumed 90% Hemodialysis Net Fluid Removed 3000 (mL) - General Appearance General appearance: Present: well-developed, well-nourished, moderate distress ( due to pain) EENT: Present: ATNC, mucous membranes moist Neck: Present: no JVD, supple Respiratory: Present: clear (ant bilat) Cardiology: Present: no edema, normal S1, normal S2 Dialysis Vascular Access: Arteriovenous Fistula thrill: Yes bruit: Yes Gastrointestinal: Present: no tenderness, no guarding Integumentary: Present: warm and dry Neurologic: Present: no focal deficit Musculoskeletal: Present: no deformities Psychiatric: Present: mood/affect appropriate - Lab 02/23/17 05:08 02/23/17 05:08 Most recent lab results Calcium 8.6 mg/dL (8.6-10.8) 02/23/17 05:08 - VTE Documentation of Mechanical Device: Venous foot pump, device Consult Discharge Plan - Plan Additional Instructions: Discharge Instructions: Total Hip Replacement Please call [facility] ([phone]), your Primary Care Physician, or report to the Emergency Room if you have any of the following symptoms: Nausea, vomiting, fever greater that 101.5, swelling, chest pain, shortness of breath, increased pain/redness/drainage/odor for your incision site, numbness/ tingling, or any other concerning symptoms. ACTIVITY:Weight-bearing as tolerated for 8 weeks with hip dislocation precautions that physical therapy taught you. You may progress as tolerated under the guidance of your physical therapist. You do not need to sleep with a pillow between your legs. You can also seep on the operative side or on your stomach. MEDICATIONS: Upon discharge resume your home medications. Take all the medications as prescribed. Take a stool softener if taking narcotic pain medications. Stool softeners are only effective if you drink enough fluids. Drink 6-8 glass of water or fluids a day, unless this is not allowed for another health problem. Despite using stool softeners, if you haven't had a bowel movement in 3 days, please switch to a gentle laxative. Gentle laxatives are sold over the counter. You should have a bowel movement within 24 hours, if not call the office. You will be discharged from the hospital with a prescription for pain medication. You are encouraged to decrease the use of narcotic pain medication as tolerated. Should you require a refill, please call the office. [facility] prescribes narcotic pain medication for only 4-6 weeks after surgery. If you require pain medication beyond this time period, you may be referred to your Primary Care Physician or to the Pain Clinic for further evaluation. Plan ahead for refills on pain medication as many narcotics either need to be picked up at the office or mailed. It is best to call 48-72 hours in advance of needing a prescription refill so you don't run out of medication. To help control the post-operative pain, you may take NSAIDs (Aleve,Advil, Motrin, ibuprofen, naprosyn) or Tylenol as prescribed on the bottle in addition to the pain medication. ANTICOAGULATION (blood thinners): Continue your Aspirin, Lovenox or Coumadin as prescribed to help prevent a blood clot in the leg or in the lungs. As long as your incision remains dry and you tolerate the NSAIDs (Aleve, Advil, Motrin, Ibuprofen, Naprosyn), it is OK to use the NSAIDS while you are taking your anticoagulation medication. Should your incision start to drain, stop the NSAID and contact our office. Common symptoms of blood clot in the legs include: localized pain, swelling, calf tenderness, redness or discoloration of the skin. Blood clot in the lung symptoms include: shortness of breath, rapid pulse, sweating, and chest pain that worsens with deep breathing, coughing up blood, lightheadedness, feelings of anxiety. If you experience any of these symptoms notify your physician immediately, go to the emergency room, or if having trouble breathing, call 911. WOUND CARE: Leave the dressing on for 7 to 10days. You may change the dressing if it is saturated greater than 50%. Do not get the dressing wet at anytime. Wash your hands with antibacterial soap, rinse and dry prior to any wound care. If you have lane the visiting nurse or rehab facility can remove the stapes 10-14 days after surgery and place steri-strips across the wound. Leave the steri-strips in place until they fall off on their own. You may let water from the shower run on top of the steri-strips. If you do not have a visiting nurse or rehab facility, you will need to return to the office at 10-[address] to be removed. If you have itching or redness around the dressing call the office. FOLLOW-UP: Please follow up with your surgeon in the orthopedic clinic in 6 weeks from the day of surgery. If you have lane that need to be removed, you will need to come back to the office in 10-14 days from the day of surgery. Referrals: Kingsley Colbert MD [Primary Care Provider] - 02/27/17 1:15 pm (Please follow up as schedule)
== END 2017-02-23 16:20 | disposition home health service (06) | DRG 301 ==
LOC: SAMDAY 12:24 → 2ANU 18:35 → 3NENU 02-21 17:29
PROVIDERS: ADMIT Orthopaedic Surgery; ATTEND Orthopaedic Surgery

== ENCOUNTER 2018-03-07 18:46 | Observation (INO) ==
--- NOTE | 2018-03-07 19:11 | Emergency Department Note ---
Disposition Clinical Impression: Encounter for removal of vascular catheter Complications, dialysis, catheter, mechanical Qualifiers: Encounter type: initial encounter Qualified Code(s): T82.49XA - Other complication of vascular dialysis catheter, initial encounter Disposition: Admitted As Inpatient Condition: Good Time of Disposition: 19:27 General Adult HPI - General Chief complaint: ED Chest Pain Stated complaint: chest pain Time Seen by Provider: 03/07/18 18:51 Source: patient, EMS Mode of arrival: EMS Limitations: no limitations Nursing Notes Reviewed: Yes Vital Signs Reviewed: Yes - History of Present Illness HPI Narrative: 57-year-old male presents to the emergency department after his dialysis catheter in his right chest fell out while he was cooking. Patient says it was sutured in but the sutures must have fell out he noticed that it was falling onto his chest. Once he noticed that he immediately applied pressure with gauze. He then called emergent EMS to have him transferred to the emergency department. Patient states right would happen is having chest pain he said that has since gone away. Says right now he has no pain. He says he feels fine. Patient does follow with Dr. Kilgore for nephrology and is a Sunday dialysis patient. He otherwise has no complaints including headaches, blurry vision, neck pain, back pain, nausea, vomiting, fevers, chest pain, shortness of breath, abdominal pain, change in bowel movements, pain with urination, pain or tearing on the arms or legs or any generalized weakness. Pain Scale: 3 - Related Data Home Medications Medication Instructions Recorded Confirmed Aclidinium [place] [Tudorza 400 mcg IH BID 06/15/15 03/07/18 Pressair] Carvedilol [Coreg] 25 mg PO BID 06/15/15 03/07/18 Albuterol Sulfate [Ventolin Hfa] 2 puff IH Q4H PRN 09/25/16 03/07/18 Aspirin [Lo-Dose Aspirin EC] 81 mg PO DAILY 09/25/16 03/07/18 NIFEdipine [Nifedipine ER] 30 mg PO DAILY 09/25/16 03/07/18 Pantoprazole Sodium [Protonix] 40 mg PO DAILY 09/25/16 03/07/18 Allergies Allergy/AdvReac Type Severity Reaction Status Date / Time No Known Allergies Allergy Verified 02/19/17 13:07 All systems ED: reviewed and negative except as stated. Review of Systems: As Per HPI Past Medical History - Past Medical History Attestation: Yes The following information was validated with the patient. Source: patient Medical history: Reports: COPD, CVA, diabetes, dialysis, hypertension, renal disease, other Surgical history: Reports: appendectomy, transplant Psychiatric history: Reports: no psych history - Social History Smoking Status: Current every day smoker Smokeless Tobacco Status: No Alcohol use: Reports: none Drug use: Reports: none Physical Exam - General Limitations: no limitations General appearance: alert, in no apparent distress - Head Head exam: atraumatic, normocephalic, normal inspection - Eye Eye exam: Present: normal appearance, PERRL, EOMI - ENT ENT exam: normal exam, normal oropharynx, mucous membranes moist - Neck Neck exam: Present: normal inspection, full ROM, trachea midline - Chest Chest inspection: Present: normal inspection, symmetric chest wall rise, other ( You can see the catheter insertion site there is no erythema or ecchymosis around the area. There is no active bleeding at this time. This is in the right part of the chest upper. No other signs of trauma to the area.) - Respiratory Respiratory exam: Present: normal lung sounds bilaterally - Cardiovascular Cardiovascular exam: Present: regular rate, normal rhythm, normal heart sounds - Extremities Exam Extremities exam: Present: normal inspection, full ROM. Absent: tenderness, pedal edema - Expanded Lower Extremity Exam Neurovascular/Tendon exam: Present: normal capillary refill. Absent: pulse deficit, motor deficit, sensory deficit, tendon deficit - Back Exam Back exam: Present: normal inspection, full ROM. Absent: tenderness, CVA tenderness (R), CVA tenderness (L) - Neurological Exam Neurological exam: Present: alert, oriented X3 - Skin Skin exam: Present: warm, dry, intact, normal color Course Course Narrative: We will do chest x-ray this time patient is not actually bleeding so no labs are needed at this time. We will contact nephrology for their recommendations. - Consultations Consultation #1: Spoke with the on-call colorist formulator Dr. Kilgore who states that she recommends admission to the hospital with nephrology in IR consultation for a temperature catheter to be placed tomorrow morning and then patient to get dialysis done tomorrow as well. Time: 19:13 Vital Signs Temperature 98.0 F 03/07/18 18:53 Pulse Rate 83 03/07/18 18:53 Respiratory Rate 20 03/07/18 18:53 Blood Pressure 134/89 03/07/18 18:53 O2 Sat by Pulse Oximetry 100 03/07/18 18:53 Temperature 98.0 F 03/07/18 18:53 Pulse Rate 72 03/07/18 22:18 Respiratory Rate 18 03/07/18 22:18 Blood Pressure 102/74 03/07/18 22:18 O2 Sat by Pulse Oximetry 98 03/07/18 22:18 Oxygen Delivery Oxygen Delivery Room Air Medical Decision Making - MDM Narrative Medical decision making narrative: Patient is stable at this time. Chest x-rays done which had no acute findings. Patient both understood. He has no active bleeding from the site. I spoke with the colorist formulator Dr. Kilgore who would like patient admitted for IR placement of a temporary catheter and dialysis tomorrow. I also put in IR consultation at this time. I spoke with the hospitalist Dr. Ledesma who agreed to admit the patient to their service. Patient is admitted in stable condition. Chest X-Ray 03/07/18 18:51 IMPRESSION: Stable chest x-ray. No acute disease. D/ / Ovidio Cantor MD / Ovidio Cantor MD Interpreting Provider: Ovidio Cantor MD - Medical Records Medical records reviewed: Yes I reviewed the patient's medical records. - Lab Data Result diagrams: 03/07/18 21:24 03/07/18 21:24 Lab Results 03/07/18 03/07/18 03/07/18 Range/Units 21:24 21:24 21:24 WBC 10.7 (4.3-11.1) K/mcL RBC 3.40 L (4.19-5.50) M/mcL Hgb 10.4 L (12.9-16.9) g/dL Hct 32.4 L (37.5-50.1) % MCV 95.3 (83.0-100.0) fL MCH 30.6 (28.0-33.3) pg MCHC 32.1 (31.6-35.5) g/dL RDW 14.1 (11.5-14.5) % Plt Count 195 (140-400) K/mcL MPV 10.6 (9.4-12.4) fL Immature Gran % 0.6 (0-4) % Seg Neutrophils % 79.4 % Lymphocytes % 17.3 % Monocytes % 2.6 % Eosinophils % 0.0 % Basophils % 0.1 % Neutrophils # 8.5 (1.6-8.9) K/mcL Lymphocytes # 1.9 (0.6-4.6) K/mcL Monocytes # 0.3 (0.0-1.3) K/mcL Eosinophils # 0.0 (0.0-0.6) K/mcL Basophils # 0.0 (0.0-0.2) K/mcL PT 11.6 (9.4-12.1) Seconds INR 1.0 APTT 31.1 (26.0-36.0) Seconds Sodium 135 L (136-145) mEq/L Potassium 4.2 (3.5-5.1) mEq/L Chloride 108 H (98-107) mEq/L Carbon Dioxide 18 L (23-29) mEq/L BUN 23 H (6-20) mg/dL Creatinine 3.28 H (0.70-1.30) mg/dL Est GFR ( Amer) 24 L (> 60) Est GFR (Non-Af Amer) 20 L (> 60) BUN/Creatinine Ratio 7 (6-26) Glucose 150 H (70-105) mg/dL Calculated Osmolality 287 (280-300) Calcium 8.9 (8.6-10.3) mg/dL Magnesium 1.7 (1.6-2.6) mg/dL Total Bilirubin 0.3 (0.3-1.0) mg/dL AST 11 L (13-39) Units/L ALT 6 L (7-52) Units/L Alkaline Phosphatase 98 (34-104) Units/L Serum Total Protein 6.1 L (6.4-8.9) g/dL Albumin 3.3 L (3.5-5.7) g/dL Globulin 2.8 (2.4-3.5) g/dL Albumin/Globulin Ratio 1.2 (1.1-2.2) - Radiology Data Radiology results reviewed: Yes I reviewed the patient's radiology results. - EKG Data EKG #1 EKG attestation: Yes I reviewed and interpreted this EKG. EKG results narrative: EKG done at 1854 review by myself and the attending shows sinus rhythm at a rate of 76, WA interval 158, QRS 94, QTc 470 with a normal axis. There is no acute ST changes no acute T-wave changes nor sent ischemia. No heart block, heart strain, hypertrophy. No WPW/Brugada/HOCM. No old EKG to compare with. Attestation Statement - Attestation Attestation: I examined this patient and my medical decision-making was reviewed with the Resident Physician. I agree with the documented findings, disposition and treatment plan as described except to the extent set forth below. Traumatic removal of dialysis catheter. X-ray shows no evidence of hemothorax or pneumothorax. Recommending admission after speaking with nephrology for IR placement of catheter and dialysis which is scheduled for tomorrow.
[2018-03-07] MEDS ORDERED: Naloxone 0.4 MG/ML INJ IVP PRN (21:01)
[2018-03-07] MEDS ORDERED: Acetaminophen 325 MG TABLET PO PRN (21:01)
--- NOTE | 2018-03-07 21:15 | Internal Med History&Physical ---
Date of Encounter: 03/07/18 Time of Encounter: 20:05 Internal Medicine - H&P: HPI Chief complaint: dialysis catheter fell out Admitted From: Emergency Dept Plans for Post Hospital Care: Home History of present illness: Mr. Sherwood is a 57 year old male who presents to the ER today after his dialysis catheter fell out of his chest. He was in the middle of cooking a meal when he noticed his catheter falling out of his chest inside of his shirt. He remembers snagging his catheter on his shirt earlier in the day and then, as he was cooking, the catheter finally and completely fell out. He came to ER here and was admitted to hospitalist service for a dialysis catheter placement tomorrow per IR. Consult was placed to IR and nephrology per ER. Upon my assessment of the patient in the ER, he is eating dinner and in no distress whatsoever. He denies any complaints other than the fact that his dialysis catheter fell out today. He denies any trauma or injury to his chest. He does admit that he snagged his catheter on his shirt earlier in the day and then it fell out while he was cooking. He has been on dialysis for 7 years according to the patient. 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 He has had several different dialysis catheters in the past placed for ongoing dialysis needs. This last catheter was placed a few weeks ago in [place], [place]. He is on a Sunday, Sunday, Sunday dialysis schedule and is due to have dialysis tomorrow. His product safety lead is Dr. Manzo. He denies any chest pain, shortness breath, fevers, chills, vomiting, diarrhea, GI upset, or any other concerns at this time. Past Med Surg Social Fam HX - Past Medical History Attestation: Yes The following information was validated with the patient. Source: patient, old records reviewed, obtained from family Medical history: COPD, CVA, diabetes, dialysis, hypertension, renal disease, other Additional medical history: HISTORY OF GASTRIC ULCER Psychiatric history: no psych history - Past Surgical History Surgical History: appendectomy, transplant Additional surgical history: fistula left arm, Kidney transplant, LTHR - Social History Smoking Status: Current every day smoker Smokeless Tobacco Status: No Alcohol use: none Drug use: none Current living situation: Home, With Family Activity Level: Independent ambulation Recent Out of Country Travel Within the Last 8 Weeks: No - Family History Mother Living Status: Hx Family Cardiac Disorders: Yes Hx Family Respiratory Disorders: Yes Hx Family Cancer: No Hx Family GI Disorders: No Hx Family Endocrine Disorder: Yes Hx Family Neuromuscular Disorders: No Hx Family Neurologic Disorders: No Hx Family HEENT Disorders: No Hx Family Autoimmune Disorders: No Father Hx Family Cardiac Disorders: Yes Internal Medicine - H&P: Meds Aclidinium [place] [Tudorza Pressair] 400 mcg IH BID 06/15/15 [History] Carvedilol [Coreg] 25 mg PO BID 06/15/15 [History] Albuterol Sulfate [Ventolin Hfa] 2 puff IH Q4H PRN 09/25/16 [History] Aspirin [Lo-Dose Aspirin EC] 81 mg PO DAILY 09/25/16 [History] NIFEdipine [Nifedipine ER] 30 mg PO DAILY 09/25/16 [History] Pantoprazole Sodium [Protonix] 40 mg PO DAILY 09/25/16 [History] 3 Allergy/AdvReac Type Severity Reaction Status Date / Time No Known Allergies Allergy Verified 02/19/17 13:07 - Constitutional Constitutional: no chills, no fever(s) - EENT Eyes: no blurry vision, no change in vision Ears: no ear pain, no tinnitus Nose, mouth and throat: no sinus pressure, no sore throat - Cardiovascular Cardiovascular ROS IM: no chest pain, no dyspnea, no edema, no orthopnea, no paroxysmal nocturnal dyspnea - Respiratory Respiratory: wheezing (chronic), no cough, no dyspnea on exertion, no chest congestion, no excessive phlegm production, no change in phlegm color - Gastrointestinal Gastrointestinal: no abdominal pain, no diarrhea, no heartburn, no hematemesis, no hematochezia, no melena, no nausea, no vomiting - Genitourinary Genitourinary ROS male: no flank pain - Musculoskeletal Musculoskeletal ROS IM: no arthralgias, no back pain - Integumentary Integumentary IM: no rash, no jaundice - Neurological Neurological ROS: no dizziness, no focal weakness, no frequent falls, no headache(s) - Psychiatric Psychiatric: no anxiety, no depression - Endocrine Endocrine IM: no polydipsia, no polyuria - Allergic/Immunologic Allergic/Immunologic: wheezing, no GI upset with certain foods - Constitutional Vitals: Temp Pulse Resp BP Pulse Ox 98.0 F 83 20 134/89 99 03/07/18 18:53 03/07/18 18:53 03/07/18 18:53 03/07/18 18:53 03/07/18 18:59 General appearance: Present: cooperative, A&O X 3, pleasant, no acute distress, answers questions appropriately Exam: no acute distress - Head Head exam: Present: atraumatic, normal inspection - Eye Eye exam: Present: EOMI, PERRL. Absent: scleral icterus Pupils: Present: normal accommodation - ENT ENT exam: Present: mucous membranes moist, normal exam, normal oropharynx - Neck Neck exam general surgery: Present: full ROM, supple. Absent: tenderness, nuchal rigidity, thyromegaly - Respiratory Respiratory exam: Present: CTAB. Absent: chest wall tenderness, rales, rhonchi , wheezes Additional comments: catheter site dressed, clean, dry - Cardiovascular Cardiovascular exam: Present: distant heart sounds, RRR, +S1, +S2. Absent: diastolic murmur, systolic murmur - GI/Abdominal GI/Abdominal exam: Present: normal bowel sounds, soft. Absent: hepatomegaly, splenomegaly, tenderness - Extremities Exam Extremities exam: Present: full ROM, warm, radial pulses palpable and symmetrical. Absent: calf tenderness, joint swelling, pedal edema, tenderness - Back Exam Back exam: Absent: CVA tenderness (L), CVA tenderness (R) - Neurological Exam Neurological exam: Present: alert, CN II-XII intact, oriented X3, no focal deficits - Psychiatric Psychiatric exam: Present: normal affect, normal mood - Skin Skin exam: Present: dry, intact, warm. Absent: rash Internal Med - H&P Results - Labs CBC & Chem 7: 03/07/18 21:24 03/07/18 21:24 - Impressions ITS Impressions Chest X-Ray 03/07/18 18:51 IMPRESSION: Stable chest x-ray. No acute disease. D/ / Ovidio Cantor MD / Ovidio Cantor MD Interpreting Provider: Ovidio Cantor MD - Assessment and plan (1) Encounter for removal of vascular catheter Current Visit: Yes Status: Acute Assessment and plan: 1. He has no dialysis catheter presently and is due for Dialysis tomorrow. 2. IR and Nephrology consulted for both above. 3. Will check routine labs and coags in preparation for IR adn for dialysis tomorrow. (2) ESRD (end stage renal disease) on dialysis Current Visit: Yes Status: Chronic Assessment and plan: 1. Will order CMP labs as they were not done in ER. 2. Consult nephrology for dialysis needs. 3. IR consult for Dialysis catheter placement tomorrow. (3) DVT prophylaxis Current Visit: Yes Status: Acute Assessment and plan: 1. Heparin SQ.
[2018-03-07 21:42] LABS: Basophils % 0.1 %; Hematocrit 32.4 % (37.5-50.1); Hemoglobin 10.4 g/dL (12.9-16.9); Immature Granulocytes % 0.6 % (0-4); Lymphocytes # 1.9 K/mcL (0.6-4.6); Lymphocytes % 17.3 %; Mean Corpuscular HGB Conc 32.1 g/dL (31.6-35.5); Mean Corpuscular Hemoglobin 30.6 pg (28.0-33.3); Mean Corpuscular Volume 95.3 fL (83.0-100.0); Mean Platelet Volume 10.6 fL (9.4-12.4); Monocytes # 0.3 K/mcL (0.0-1.3); Monocytes % 2.6 %; Neutrophils # 8.5 K/mcL (1.6-8.9); Platelet Count 195 K/mcL (140-400); Red Cell Distribution Width 14.1 % (11.5-14.5); Segmented Neutrophils % 79.4 %
[2018-03-07 21:48] LABS: Prothrombin Time 11.6 Seconds (9.4-12.1)
[2018-03-07 21:50] LABS: Activated Partial Thrombo Time 31.1 Seconds (26.0-36.0)
[2018-03-07 22:06] LABS: Albumin 3.3 g/dL (3.5-5.7); Albumin/Globulin Ratio 1.2 (1.1-2.2); Bilirubin,Total 0.3 mg/dL (0.3-1.0); Calcium 8.9 mg/dL (8.6-10.3); Globulin 2.8 g/dL (2.4-3.5); Magnesium 1.7 mg/dL (1.6-2.6); Potassium 4.2 mEq/L (3.5-5.1); Total Protein 6.1 g/dL (6.4-8.9)
[2018-03-08] MEDS ORDERED: *HR* Heparin 5,000 UNIT/ML VIAL SQ SCH (06:00)
--- NOTE | 2018-03-08 08:56 | Discharge Summary ---
<SamBen Durand - Last Filed: 03/08/18 14:32> - NOTES TO OUTPATIENT PROVIDER Notes to Outpatient Provider: Mr. Sherwood presented to the ED on 03/07 after his dialysis catheter fell out at home while cooking. Interventional Radiology placed a new dialysis catheter on 03/08 without difficulty. Orders not resulted at time of discharge: Pending orders 03/08/18 IR cvc insert non tunnel [IR] Routine IR us guide vascular access [IR] Routine Date of Encounter: 03/08/18 Time of Encounter: 08:56 - Discharge Diagnosis (1) ESRD (end stage renal disease) on dialysis Priority: Secondary Status: Chronic Assessment and Plan: Follows with Dr. Magui lee On a MWF dialysis schedule Cr today was 3.28, unknown baseline Pt states he is near his dry weight and has had no difficulties or complications recently . (2) Complications, dialysis, catheter, mechanical Priority: Primary Status: Acute Assessment and Plan: HD catheter fell out while pt was at home cooking chicken. He states there were originally sutures, but he does not know how it happened. Bandage placed over former cath site. New HD catheter placement with IR today Qualifiers: Encounter type: initial encounter Qualified Code(s): T82.49XA - Other complication of vascular dialysis catheter, initial encounter Hospital course: Mr. Sherwood is a 57 year old male Discharge discussed with: patient, nurse, franchise business consultant - Time Spent with Patient Total time spent providing and/or coordinating discharge services: - Discharge Medications Home Medications: Aclidinium [place] [Tudorza Pressair] 400 mcg IH BID 06/15/15 [History] Carvedilol [Coreg] 25 mg PO BID 06/15/15 [History] Albuterol Sulfate [Ventolin Hfa] 2 puff IH Q4H PRN 09/25/16 [History] Aspirin [Lo-Dose Aspirin EC] 81 mg PO DAILY 09/25/16 [History] NIFEdipine [Nifedipine ER] 30 mg PO DAILY 09/25/16 [History] Pantoprazole Sodium [Protonix] 40 mg PO DAILY 09/25/16 [History] Allergies/Adverse Reactions: 3 Allergy/AdvReac Type Severity Reaction Status Date / Time No Known Allergies Allergy Verified 02/19/17 13:07 Date of admission: 03/07/18 22:18 Primary care physician: Kingsley Colbert MD Consults: 03/07/18 23:03 Consult to Nutrition [CONS] Routine Comment: Consulting Provider: NUTRITION Reason for Dietary Consult: MST Score Discharging clinician: Ben Vargas - Constitutional Vitals: Temp Pulse Resp BP Pulse Ox 98.1 F 55 18 118/70 98 03/08/18 07:43 03/08/18 07:43 03/08/18 07:43 03/08/18 07:43 03/08/18 07:43 General appearance: Present: cooperative, A&O X 3, pleasant, no acute distress, answers questions appropriately Exam: Constitutional: well developed, well nourished male. no acute distress Head: normocephalic and atraumatic Eyes: PERRL, EOMI. no scleral icterus Neck: supple, trachea midline. no lymphadenopathy Lungs: CTA bialterally. Non-labored breathing. No wheezes, rales, or rhonchi. Heart: RRR +S1 +S2. no murmurs, clicks, or rubs appreciated. GI: abdomen soft, non-tender, non-distended. normoactive bowel sounds Extremities: radial pulses palpable and symmetrical. No edema or cyanosis. Neuro: A&Ox3. No focal deficits. No speech abnormality or difficulty. Skin: warm, dry, intact. Clean and dry bandage in place over former HD cath site. - Patient Status Disposition: Home, Self-Care Condition: Good Functional capacity at discharge: independent ambulation Overall status at discharge: patient is back to baseline - Discharge Instructions Instructions: Dialysis Diet (GEN), Tunneled Central Lines Adult (DC) Follow Up With: Kingsley Colbert MD [Primary Care Provider] - - Diet and Activity Activity: increase activity as tolerated, resume usual activities as tolerated Diet: low salt diet <Thallapanmathew,Rambabu - Last Filed: 03/08/18 17:09> Date of Encounter: 03/08/18 - Discharge Diagnosis (1) ESRD (end stage renal disease) on dialysis Status: Chronic (2) Complications, dialysis, catheter, mechanical Status: Acute Qualifiers: Encounter type: initial encounter Qualified Code(s): T82.49XA - Other complication of vascular dialysis catheter, initial encounter Hospital course: Mr. Sherwood is a 57 year old male - Time Spent with Patient Total time spent providing and/or coordinating discharge services: Date of admission: 03/07/18 22:18 Primary care physician: Kingsley Colbert MD Consults: 03/07/18 23:03 Consult to Nutrition [CONS] Routine Comment: Consulting Provider: NUTRITION Reason for Dietary Consult: MST Score 03/08/18 10:18 Consult to Interventional Radiology [CONS] Routine Consulting Provider: Radiology Interventional Cols Reason for Consult: Permanent HD cath placement Time Notified: 10:19 Call Completed: Yes 03/08/18 13:00 Consult to Dialysis [CONS] ONCE - Constitutional Vitals: Temp Pulse Resp BP Pulse Ox 98.5 F 56 18 162/74 97 03/08/18 11:54 03/08/18 11:54 03/08/18 11:54 03/08/18 11:54 03/08/18 11:54 - Attending Attestation I examined this patient and my medical decision-making was reviewed with the Resident Physician Dr. Vargas. I agree with the documented findings, disposition and treatment plan as described except to the extent set forth below. Mr. Sherwood is a 57 y/o M with known PMH of HTN, ESRD on HD pt presented to ED with falling of perm HD cath. Pt was admitted in the hospital and placed perm HD cath by IR today. HD as per nephro recommendations. Gen: A, A< O x3 Chest: Diminished BS b/l Heart: S1S2+
[2018-03-08] MEDS ORDERED: NIFEdipine XL (24 HR) 30 MG TAB.ER.24 PO SCH (09:00)
[2018-03-08] MEDS ORDERED: Aspirin Enteric Coated 81 MG Tablet PO SCH (09:00)
[2018-03-08] MEDS ORDERED: Heparin 1,000 UNITS/500 mL 500 ML ONE (09:54)
[2018-03-08] MEDS ORDERED: Tiotropium 18 MCG inhalation IH SCH (10:00)
[2018-03-08] MEDS ORDERED: TUDORZA PRESSAIR 400 MCG IH SCH (10:00)
[2018-03-08] MEDS ORDERED: *HR* FentaNYL (PF) 100 MCG/2 ML VIAL IVP ONE (10:27)
[2018-03-08] MEDS ORDERED: *HR* Midazolam HCl 2 MG/2 ML VIAL IVP ONE (10:27)
[2018-03-08] MEDS ORDERED: CeFAZolin Premix DUPLEX 2,000 MG/50 ML BAG IVPB ONE ×2 (10:27→10:39)
[2018-03-08] MEDS ORDERED: 0.9 % Sodium Chloride 500 ML ONE (10:43)
[2018-03-08] MEDS ORDERED: *HR* Heparin 5,000 UNIT/ML VIAL ONE (11:24)
[2018-03-08 11:54] VITALS: BP 162/74
--- NOTE | 2018-03-08 11:55 | Pre-Sedation Evaluation ---
Pre-sedation evaluation - Pre-sedation checklist Date of procedure: 03/08/18 Procedure: permcath Recent Vitals: Last Vital Signs Temp 98.5 F 03/08/18 11:54 Pulse 56 03/08/18 11:54 Resp 18 03/08/18 11:54 BP 162/74 03/08/18 11:54 Pulse Ox 97 03/08/18 11:54 H&P (including ROS) documented in medical record: Yes Previous reaction to sedatives/anesthetics: No Dietary Status: NPO after Midnight Airway Assessment: Patient can open mouth completely, TMJ function normal, Micrognathia (under-bite, receding chin) absent, Neck with adequate range of motion Dentition: No loose teeth or bridges Possible difficult airway: No ASA Classification *see protocol: CLASS II-Mild systemic disease Plan of Care: Pt appropriate candidate for procedure/moderate/conscious sedation , Risks/benefits of procedure/sedation discussed w/ patient/family, If not NPO; Risk of intake outweiged by necessity to perform procedure Cardiac Registry (Cardio Only) - Functional Capacity - Clincal Frailty Scale
--- NOTE | 2018-03-08 11:57 | IR Procedure Note ---
Date of procedure: 03/08/18 Consent Obtained: Written consent Timeout: Time out performed Local anesthetic: Lidocaine 1% Indications: ESRD, in need of longer term access Procedure Performed: Tunneled HD catheter placement Was there an clinical laboratory assistant present: Yes Telecommunication Lines Repairer: Jose A Flaherty Site/Technique: RIJV used for access Results/Findings: Tunneled catheter placed without difficulty. Working well. 28cm used. Estimated blood loss (cc): 2 Complications: None; Tolerated procedure well Post Procedure Treatment Plan: Monitoring in pts room Specimen: None
--- NOTE | 2018-03-08 12:38 | Nephrology Consult Note ---
Date of Encounter: 03/08/18 Time of Encounter: 12:00 Assessment and Plan (1) Complications, dialysis, catheter, mechanical Current Visit: Yes Status: Acute s/p new permcath by IR, will use today at dialysis to ensure with no problems with use Qualifiers: Encounter type: initial encounter Qualified Code(s): T82.49XA - Other complication of vascular dialysis catheter, initial encounter (2) ESRD (end stage renal disease) on dialysis Current Visit: Yes Status: Chronic Lytes stable Will resume routine HD today. 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 Pt seen and examined s/p new permcath today. Renal consulted for ESRD management as today is his dialysis day. Will arrange. Past Med Surg Social Fam HX - Past Medical History Medical history: COPD, CVA, diabetes, dialysis, hypertension, renal disease, other Additional medical history: HISTORY OF GASTRIC ULCER Psychiatric history: no psych history - Past Surgical History Surgical History: appendectomy, transplant Additional surgical history: fistula left arm, Kidney transplant, LTHR - Social History Smoking Status: Current every day smoker Smokeless Tobacco Status: No Alcohol use: none Drug use: none - Family History Mother Living Status: Hx Family Cardiac Disorders: Yes Hx Family Respiratory Disorders: Yes Hx Family Cancer: No Hx Family GI Disorders: No Hx Family Endocrine Disorder: Yes Hx Family Neuromuscular Disorders: No Hx Family Neurologic Disorders: No Hx Family HEENT Disorders: No Hx Family Autoimmune Disorders: No Father Hx Family Cardiac Disorders: Yes Medications and Allergies Aclidinium [place] [Tudorza Pressair] 400 mcg IH BID 06/15/15 [History] Carvedilol [Coreg] 25 mg PO BID 06/15/15 [History] Albuterol Sulfate [Ventolin Hfa] 2 puff IH Q4H PRN 09/25/16 [History] Aspirin [Lo-Dose Aspirin EC] 81 mg PO DAILY 09/25/16 [History] NIFEdipine [Nifedipine ER] 30 mg PO DAILY 09/25/16 [History] Pantoprazole Sodium [Protonix] 40 mg PO DAILY 09/25/16 [History] 3 Allergy/AdvReac Type Severity Reaction Status Date / Time No Known Allergies Allergy Verified 02/19/17 13:07 Review of Systems All Systems review (narrative): The rest of the systems (10) were also negative Constitutional: fatigue (denies) Cardiovascular: chest pain (denies) Respiratory: dyspnea (denies) Exam - Vital Signs Vital signs: Initial Vital Signs Temp Pulse Resp BP Pulse Ox 98.0 F 83 20 134/89 100 03/07/18 18:53 03/07/18 18:53 03/07/18 18:53 03/07/18 18:53 03/07/18 18:53 Vital Signs - Last 8 Hours Temp Pulse Resp BP Pulse Ox 03/08/18 11:54 98.5 F 56 18 162/74 97 03/08/18 11:19 62 12 96/61 99 03/08/18 11:14 60 16 92/56 99 03/08/18 11:09 62 13 94/61 98 03/08/18 11:04 66 13 94/62 99 03/08/18 11:01 68 14 90/62 98 03/08/18 10:21 62 14 95/55 03/08/18 07:43 98.1 F 55 18 118/70 98 03/08/18 05:50 98.1 F 69 16 111/66 98 Intake and Output 03/07/18 03/08/18 03/08/18 23:59 07:59 15:59 Intake Total 0 / 0 Output Total 300 / 300 Balance -300 / -300 Intake: Oral 0 / 0 Output: Urine 300 / 300 Other: Weight 66.684 kg Blood Glucose* 143 Patient Weight 03/08/18 23:59 Weight 66.684 kg - General Appearance General appearance: well-developed, well-nourished EENT: ATNC, mucous membranes moist Neck: no JVD, supple Respiratory: clear (ant bilat) Cardiology: no edema, normal S1, normal S2 - Dialysis Access Dialysis Vascular Access: Venous Catheter (permcath) Gastrointestinal: no tenderness, no guarding Integumentary: warm and dry Neurologic: no focal deficit Musculoskeletal: no deformities Psychiatric: mood/affect appropriate, cooperative Results - Lab Results 03/07/18 21:24 03/07/18 21:24 Most recent lab results Calcium 8.9 mg/dL (8.6-10.3) 03/07/18 21:24 Magnesium 1.7 mg/dL (1.6-2.6) 03/07/18 21:24 Consult Discharge Plan - Plan Referrals: Kingsley Colbert MD [Primary Care Provider] -
[2018-03-08] MEDS ORDERED: *HR* Heparin 10,000 UNIT/10 ML VIAL IV PRN (12:52)
[2018-03-08] MEDS ORDERED: 0.9 % Sodium Chloride 250 ML IVC PRN (12:52)
[2018-03-08] MEDS ORDERED: 0.9 % Sodium Chloride 1,000 ML PRIME SCH (13:00)
--- NOTE | 2018-03-11 15:55 | Electrocardiograph Report ---
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
== END 2018-03-08 13:48 | disposition home or self-care (01) ==
LOC: EMEROOARM 18:46 → 2ANU 18:46
PROVIDERS: ADMIT Family Medicine; ATTEND Family Medicine
PROC: IRPERMA (2018-03-08 12:00)

== ENCOUNTER 2020-12-14 15:20 | Observation (INO) ==
[2020-12-14] MEDS ORDERED: 0.9 % Sodium Chloride 1,000 ML IVC ONE (15:27)
[2020-12-14] MEDS ORDERED: *HR* HYDROmorphone (PF) 1 MG/ML SYRINGE IVP ONE (15:38)
[2020-12-14] MEDS ORDERED: Ondansetron 4 MG/2 ML VIAL IVP ONE (15:38)
[2020-12-14] MEDS ORDERED: Isovue-370 500 ML BOTTLE IVP ONE (15:40)
[2020-12-14 16:29] LABS: Basophils % 0.4 %; Eosinophils % 0.2 %; Hematocrit 53.2 % (37.5-50.1); Hemoglobin 17.2 g/dL (12.9-16.9); Immature Granulocytes % 0.4 % (0-4); Lymphocytes # 1.8 K/mcL (0.6-4.6); Lymphocytes % 20.2 %; Mean Corpuscular HGB Conc 32.3 g/dL (31.6-35.5); Mean Corpuscular Hemoglobin 29.1 pg (28.0-33.3); Mean Platelet Volume 10.3 fL (9.4-12.4); Monocytes # 0.6 K/mcL (0.0-1.3); Monocytes % 6.1 %; Neutrophils # 6.6 K/mcL (1.6-8.9); Platelet Count 229 K/mcL (140-400); Red Blood Count 5.91 M/mcL (4.19-5.50); Red Cell Distribution Width 12.6 % (11.5-14.5); Segmented Neutrophils % 72.7 %; White Blood Count 9.1 K/mcL (4.3-11.1)
[2020-12-14 16:40] LABS: INR 1.2; Prothrombin Time 13.8 Seconds (9.4-12.1)
[2020-12-14 16:42] LABS: Activated Partial Thrombo Time 27.1 Seconds (26.0-36.0)
[2020-12-14 16:52] LABS: Alanine Aminotransferase 14 Units/L (7-52); Albumin 4.7 g/dL (3.5-5.7); Albumin/Globulin Ratio 1.3 (1.1-2.2); Alkaline Phosphatase 111 Units/L (34-104); Aspartate Amino Transferase 15 Units/L (13-39); BUN/Creatinine Ratio 14 (6-26); Bilirubin,Total 0.9 mg/dL (0.3-1.0); Blood Urea Nitrogen 32 mg/dL (6-20); Calcium 9.7 mg/dL (8.6-10.3); Carbon Dioxide 15 mEq/L (23-29); Chloride 102 mEq/L (98-107); Globulin 3.5 g/dL (2.4-3.5); Glucose 141 mg/dL (70-105); Lipase 16 Units/L (11-82); Osmolality,Calculated 285 (280-300); Potassium 4.4 mEq/L (3.5-5.1); Sodium 133 mEq/L (136-145); Total Protein 8.2 g/dL (6.4-8.9); Troponin I < 0.03 ng/mL (< 0.04); eGFR For African Americans 37 (> 60); eGFR For Non-African Americans 31 (> 60)
[2020-12-14 17:48] LABS: Amorphous Sediment,Urine Few per hpf (None-Few); Bilirubin,Urine Small (Negative); Blood,Urine Small (Negative); Clarity,Urine Turbid (Clear); Color,Urine Yellow (Yellow); Glucose,Urine (UA) Normal (Normal); Hyaline Casts,Urine Moderate per lpf (None Seen); Ketones,Urine 10 mg/dL (Negative); Leukocyte Esterase,Urine Negative (Negative); Mucus,Urine Few per lpf (None-Few); Nitrite,Urine Negative (Negative); PH,Urine 5.5 pH Units (5.0-8.0); Protein,Urine 100 mg/dL (Neg-Trace); RBC,Urine 15-30 per hpf (0-3); Renal Epithelial Cells,Urine Few per hpf (None-Few); Specific Gravity,Urine > 1.030 (1.010-1.025); Squamous Epithelial Cell,Urine Few per hpf (None-Few); Transitional Epi Cells,Urine Few per hpf (None-Few)
[2020-12-14] MEDS ORDERED: Acetaminophen 325 MG TABLET PO PRN (20:36)
[2020-12-14] MEDS ORDERED: Naloxone 0.4 MG/ML INJ IVP PRN (20:36)
[2020-12-14] MEDS ORDERED: Ondansetron 4 MG/2 ML VIAL IVP PRN (20:36)
[2020-12-14] MEDS ORDERED: 0.9 % Sodium Chloride 1,000 ML IVC SCH (20:45)
[2020-12-14] MEDS ORDERED: TACROLIMUS 1 MG PO SCH (23:30)
[2020-12-14] MEDS: mycophenolate mofetiL 250 MG/1.25 ML SUSP.RECON PO SCH (23:56)
[2020-12-15] MEDS: Morphine Sulfate 2 MG/ML SYRINGE IVP PRN ×2 (00:53→07:34)
[2020-12-15 03:48] LABS: Hematocrit 44.5 % (37.5-50.1); Mean Corpuscular HGB Conc 31.9 g/dL (31.6-35.5); Mean Corpuscular Hemoglobin 28.7 pg (28.0-33.3); Mean Corpuscular Volume 89.9 fL (83.0-100.0); Mean Platelet Volume 10.2 fL (9.4-12.4); Platelet Count 215 K/mcL (140-400); Red Blood Count 4.95 M/mcL (4.19-5.50); Red Cell Distribution Width 12.8 % (11.5-14.5); White Blood Count 7.7 K/mcL (4.3-11.1)
[2020-12-15 03:58] LABS: Hemoglobin 14.2 g/dL (12.9-16.9)
[2020-12-15 03:59] LABS: Calcium 8.6 mg/dL (8.6-10.3)
[2020-12-15] MEDS: TACROLIMUS 1 MG PO SCH ×3 (07:35→20:01)
[2020-12-15] MEDS: Nystatin Cream 15 GM TUBE TP SCH ×3 (07:35→20:13)
[2020-12-15] MEDS: Nicotine 14 MG PATCH.TD24 TD SCH ×2 (09:19)
[2020-12-15] MEDS: mycophenolate mofetiL 250 MG/1.25 ML SUSP.RECON PO SCH ×2 (09:19→20:01)
[2020-12-15] MEDS ORDERED: *HR* OxyCODONE/APAP 7.5/325 TABLET PO PRN (09:44)
[2020-12-15] MEDS: *HR* OxyCODONE/APAP 7.5/325 TABLET PO PRN ×2 (10:17→16:12)
[2020-12-15] MEDS: Sodium Bicarbonate 75 MEQ in 0.45 % Sodium Chloride 1,000 ML IVC SCH ×2 (10:17→20:12)
[2020-12-15] MEDS ORDERED: 0.9 % Sodium Chloride 1,000 ML IVC SCH (12:00)
[2020-12-15 19:56] VITALS: BP 179/85; PULSE 70; TEMP 97.9; O2SAT 99
[2020-12-15] MEDS ORDERED: Gabapentin 300 MG CAPSULE PO SCH (21:00)
[2020-12-16] MEDS ORDERED: Sulfamethoxazole/Trimeth Oral Soln 400-80mg/10 ML UDC PO SCH (09:00)
== END 2020-12-15 20:39 | disposition short-term general hospital (02) ==
LOC: EMEROOARM 15:20 → 2ANU 15:20
PROVIDERS: ADMIT Internal Medicine; ATTEND Internal Medicine

== ENCOUNTER 2021-02-13 13:52 | Observation (INO) ==
[2021-02-13] MEDS ORDERED: Isovue-370 500 ML BOTTLE IVP ONE (14:16)
[2021-02-13] MEDS ORDERED: Ipratropium/Albuterol Neb 3 ML IH ONE (14:53)
[2021-02-13] MEDS ORDERED: methylPREDNISolone 125 MG/2 ML VIAL IVP ONE (14:53)
[2021-02-13 15:26] LABS: Influenza A PCR Negative (Negative); Influenza B PCR Negative (Negative); Resp. Syncytial Virus PCR Negative (Negative)
[2021-02-13 15:29] LABS: SARS-CoV-2 by PCR (In House) Positive (Negative)
[2021-02-13 15:57] LABS: Basophils % 0.3 %; Eosinophils % 0.3 %; Hematocrit 41.4 % (37.5-50.1); Hemoglobin 13.4 g/dL (12.9-16.9); Immature Granulocytes % 0.7 % (0-4); Mean Corpuscular HGB Conc 32.4 g/dL (31.6-35.5); Mean Corpuscular Hemoglobin 28.8 pg (28.0-33.3); Mean Platelet Volume 10.3 fL (9.4-12.4); Monocytes # 0.2 K/mcL (0.0-1.3); Monocytes % 7.3 %; Neutrophils # 1.8 K/mcL (1.6-8.9); Platelet Count 151 K/mcL (140-400); Red Blood Count 4.65 M/mcL (4.19-5.50); Red Cell Distribution Width 13.2 % (11.5-14.5); Segmented Neutrophils % 59.4 %
[2021-02-13 15:58] LABS: VBG HCO3 14 mEq/L (21-27); VBG PCO2 20 mmHg (41-51); VBG PH 7.46 pH Units (7.32-7.42); VBG PO2 152 mmHg (25-50)
[2021-02-13] MEDS ORDERED: Azithromycin 250 MG TABLET PO ONE (15:59)
[2021-02-13] MEDS ORDERED: cefTRIAXone 1,000 MG in Water for inj. (sterile) 10 ML IVP ONE (15:59)
[2021-02-13 16:34] LABS: Troponin I < 0.03 ng/mL (< 0.04)
[2021-02-13 16:56] LABS: Alanine Aminotransferase 7 Units/L (7-52); Albumin 3.9 g/dL (3.5-5.7); Albumin/Globulin Ratio 1.3 (1.1-2.2); Alkaline Phosphatase 90 Units/L (34-104); Aspartate Amino Transferase 16 Units/L (13-39); BUN/Creatinine Ratio 8 (6-26); Bilirubin,Direct 0.1 mg/dL (0.0-0.2); Bilirubin,Indirect 0.4 mg/dL (0.0-1.0); Bilirubin,Total 0.5 mg/dL (0.3-1.0); Blood Urea Nitrogen 18 mg/dL (6-20); Calcium 8.4 mg/dL (8.6-10.3); Carbon Dioxide 14 mEq/L (23-29); Chloride 108 mEq/L (98-107); Glucose 119 mg/dL (70-105); Magnesium 1.7 mg/dL (1.6-2.6); Osmolality,Calculated 281 (280-300); Potassium 3.8 mEq/L (3.5-5.1); Sodium 134 mEq/L (136-145); Total Protein 6.9 g/dL (6.4-8.9); eGFR For African Americans 37 (> 60); eGFR For Non-African Americans 31 (> 60)
[2021-02-13] MEDS ORDERED: 0.9 % Sodium Chloride 1,000 ML IVC ONE (17:05)
[2021-02-13 17:26] LABS: Bacteria,Urine Moderate per hpf (None-Few); Bilirubin,Urine Negative (Negative); Blood,Urine Small (Negative); Clarity,Urine Turbid (Clear); Color,Urine Yellow (Yellow); Glucose,Urine (UA) Normal (Normal); Granular Casts,Urine Few per lpf (None Seen); Hyaline Casts,Urine Few per lpf (None Seen); Ketones,Urine Trace mg/dL (Negative); Leukocyte Esterase,Urine Large (Negative); Mucus,Urine Few per lpf (None-Few); Nitrite,Urine Positive (Negative); Protein,Urine 100 mg/dL (Neg-Trace); Specific Gravity,Urine > 1.030 (1.010-1.025); Sperm,Urine Present per hpf (None Seen); Urobilinogen,Urine Normal (Normal); WBC,Urine TNTC per hpf (0-3)
[2021-02-13] MEDS ORDERED: Ipratropium 1 PUFF INHALER IH PRN (20:08)
[2021-02-13] MEDS ORDERED: Naloxone 0.4 MG/ML INJ IVP PRN (20:27)
[2021-02-13] MEDS ORDERED: Ondansetron 4 MG/2 ML VIAL IVP PRN (20:27)
[2021-02-13] MEDS ORDERED: 0.9 % Sodium Chloride 1,000 ML IVC SCH (20:30)
[2021-02-13] MEDS: cefTRIAXone 1,000 MG in 0.9 % Sodium Chloride Mini Bag 100 ML IVPB SCH (21:34)
[2021-02-13] MEDS: *HR* Heparin 5,000 UNIT/ML VIAL SQ SCH (21:37)
[2021-02-13] MEDS: mycophenolate mofetiL 250 MG/1.25 ML SUSP.RECON PO SCH (22:46)
[2021-02-13] MEDS: Gabapentin 300 MG CAPSULE PO SCH (22:46)
[2021-02-13] MEDS: MethylPREDNISolone 40 MG/ML VIAL IVP SCH (22:46)
[2021-02-13] MEDS: TACROLIMUS 1 MG PO SCH (22:46)
[2021-02-13] MEDS: Ipratropium 1 PUFF INHALER IH SCH (23:52)
[2021-02-14 05:00] LABS: Hematocrit 36.8 % (37.5-50.1); Hemoglobin 12.2 g/dL (12.9-16.9); Mean Corpuscular HGB Conc 33.2 g/dL (31.6-35.5); Mean Corpuscular Hemoglobin 29.7 pg (28.0-33.3); Mean Corpuscular Volume 89.5 fL (83.0-100.0); Mean Platelet Volume 10.4 fL (9.4-12.4); Platelet Count 152 K/mcL (140-400); Red Blood Count 4.11 M/mcL (4.19-5.50); Red Cell Distribution Width 13.1 % (11.5-14.5); White Blood Count 1.6 K/mcL (4.3-11.1)
[2021-02-14] MEDS: Ipratropium 1 PUFF INHALER IH SCH ×6 (05:16→23:46)
[2021-02-14 05:19] LABS: Albumin 3.4 g/dL (3.5-5.7); Albumin/Globulin Ratio 1.1 (1.1-2.2); Bilirubin,Total 0.3 mg/dL (0.3-1.0); Calcium 7.8 mg/dL (8.6-10.3); Magnesium 1.7 mg/dL (1.6-2.6); Phosphorous 3.3 mg/dL (2.7-4.5); Potassium 4.1 mEq/L (3.5-5.1); Total Protein 6.4 g/dL (6.4-8.9)
[2021-02-14 05:20] LABS: C-Reactive Protein 43 mg/L (Less than 10); Lactate Dehydrogenase 92 Units/L (140-271)
[2021-02-14] MEDS: *HR* Heparin 5,000 UNIT/ML VIAL SQ SCH ×3 (05:30→21:09)
[2021-02-14] MEDS: MethylPREDNISolone 40 MG/ML VIAL IVP SCH (05:32)
[2021-02-14 05:39] LABS: Ferritin 870 ng/mL (20-250)
[2021-02-14] MEDS: cefTRIAXone 1,000 MG in 0.9 % Sodium Chloride Mini Bag 100 ML IVPB SCH (08:02)
[2021-02-14] MEDS: Azithromycin 500 MG in 0.9 % Sodium Chloride 250 ML IVPB SCH (08:03)
[2021-02-14] MEDS: Gabapentin 300 MG CAPSULE PO SCH ×2 (08:04→21:08)
[2021-02-14] MEDS: mycophenolate mofetiL 250 MG/1.25 ML SUSP.RECON PO SCH ×2 (08:07→21:49)
[2021-02-14] MEDS ORDERED: TACROLIMUS 1 MG PO SCH (09:00)
[2021-02-14] MEDS: TACROLIMUS 1 MG PO SCH ×4 (13:32→21:10)
[2021-02-15] MEDS: Ipratropium 1 PUFF INHALER IH SCH ×3 (04:11→11:57)
[2021-02-15] MEDS: *HR* Heparin 5,000 UNIT/ML VIAL SQ SCH ×2 (05:06→14:44)
[2021-02-15 06:21] LABS: Hemoglobin 11.7 g/dL (12.9-16.9); Immature Granulocytes % 0.5 % (0-4); Lymphocytes # 1.1 K/mcL (0.6-4.6); Lymphocytes % 17.6 %; Mean Corpuscular HGB Conc 32.5 g/dL (31.6-35.5); Mean Corpuscular Hemoglobin 29.3 pg (28.0-33.3); Mean Platelet Volume 10.7 fL (9.4-12.4); Monocytes # 0.3 K/mcL (0.0-1.3); Monocytes % 4.3 %; Neutrophils # 4.7 K/mcL (1.6-8.9); Platelet Count 153 K/mcL (140-400); Red Cell Distribution Width 13.3 % (11.5-14.5); Segmented Neutrophils % 77.6 %
[2021-02-15 06:43] LABS: Potassium 4.2 mEq/L (3.5-5.1)
[2021-02-15 07:54] VITALS: TEMP 97.8
[2021-02-15] MEDS: Gabapentin 300 MG CAPSULE PO SCH (07:59)
[2021-02-15] MEDS: mycophenolate mofetiL 250 MG/1.25 ML SUSP.RECON PO SCH (08:00)
[2021-02-15] MEDS: TACROLIMUS 1 MG PO SCH (08:00)
[2021-02-15] MEDS ORDERED: predniSONE 20 MG TABLET PO SCH (09:00)
[2021-02-15] MEDS ORDERED: Cefdinir 300 MG CAPSULE PO ONE ×2 (09:00→14:15)
[2021-02-15 10:43] VITALS: BP 120/67; PULSE 74
[2021-02-15 12:04] VITALS: O2SAT 96
[2021-02-15] MEDS: Azithromycin 500 MG in 0.9 % Sodium Chloride 250 ML IVPB SCH (12:33)
[2021-02-15] MEDS ORDERED: Cefdinir 300 MG CAPSULE PO SCH (21:00)
== END 2021-02-15 15:30 | disposition home or self-care (01) ==
LOC: 3BNU 13:52 → EMEROOARM 13:52 → SUATTDRO 18:32 → 3BNU 19:39
PROVIDERS: ADMIT Internal Medicine; ATTEND Internal Medicine